=== PATIENT | female | born 1950 | race Caucasian/White ===

== ENCOUNTER 2017-02-16 08:03 | Emergency (ER) | payer BC ==
[2017-02-16] MEDS ORDERED: NORMAL SALINE 1,000 ML in NORMAL SALINE 1,000 ML IV ONE (08:29)
[2017-02-16] MEDS ORDERED: ACETAMINOPHEN 500 MG TABLET PO ONE (08:31)
[2017-02-16 08:53] LABS: Urine Bilirubin Negative (NEGATIVE); Urine Blood Negative /ul (NEGATIVE); Urine Ketone Negative (NEGATIVE); Urine Nitrite Negative (NEGATIVE); Urine Protein Negative (NEGATIVE); Urine Urobilinogen Normal (NORMAL); Urine pH 6.5 pH (5.0-7.0)
[2017-02-16 08:54] LABS: Hematocrit 36.2 % (37.0-47.0); Hemoglobin 11.4 gm/dL (12.5-16.0); Mean Cell Volume 87.7 fl (78-100); Mean Corpuscular Hemoglobin 27.6 pg (27-31); Mean Corpuscular Hgb Conc 31.5 g/dl (32-36); Platelet Count 212 K/mm3 (150-450); Red Blood Count 4.13 M/mm3 (4.2-5.4); Red Cell Distribution Width 15.9 % (11.5-14.0); White Blood Count 7.4 K/mm3 (4.0-10.5)
[2017-02-16 08:57] LABS: Total Cells Counted 100
[2017-02-16 09:02] LABS: Urine Appearance Clear; Urine Bacteria 1+; Urine Color Yellow; Urine Mucus TRACE; Urine RBC TRACE /hpf (0-5); Urine WBC TRACE /hpf (0-5)
--- OUTSIDE RECORDS SUMMARY | 2017-02-16 09:03 | XMS REPORT | Continuity of Care Document ---
:1950 Author Organization [facility] ([facility]) Address [address] [place] [address] Phone [phone] Care Team Providers Name Role Phone Rebekah Sibley Primary Care Provider [phone] Source Comments This disclosure is being made pursuant to the Care Everywhere program, applicable federal and state laws, and may not contain all informaitonavailable regarding this patient.[facility] ([facility]) Active Allergies and Adverse Reactions Allergen Noted Date Severity Reactions Comments Morphine 01/01/2015 Urticaria (Hives) Penicillins 07/21/2011 Rash Sitagliptin-Metformin 04/07/2012 Urticaria (Hives) Janumet Sulfasalazine 07/21/2011 Nausea & Vomiting,Rash Azulfidine. Pt reports not allergic to sulfa. Tramadol 02/12/2017 Pruritus Current Medications Prescription Sig. Disp. Refills Start End Status Date Date metFORMIN 500 mg Take 1,000 mg by Active tablet mouth 2 times daily with meals. calcium carbonate Take 1 Tab by Active (CALCIUM 600 + D) mouth daily. (600 mg Ca) 1500 mg -vitamin D3 400 unit per tablet multivitamin tablet Take 1 tablet by Active mouth daily. COPAXONE 20 mg/mL Inject 20 mg Active injection syringe subcutaneously 6 daily. cranberry 400 mg Take 400 mg by Active capsule mouth 2 times daily. levothyroxine 50 Take 50 mcg by Active mcg tablet mouth every morning before breakfast. mesalamine Take 6 capsules 200 capsule 11 Active (DELZICOL) 400 mg (2,400 mg total) 7 XR capsule by mouth 2 times daily. Take 6 capsules in morning and 6 capsules in evening 1 hour before or 2 hours after a meal. dexlansoprazole Take 60 mg by Active (DEXILANT) [address] mouth daily. capsule cholecalciferol Take 1 tablet 30 tablet 6 Active (VITAMIN D3) 5,000 (5,000 Units 7 unit tablet total) by mouth daily. predniSONE 20 mg 40 mg/day for 2 100 tablet 2 Active tablet weeks, then 35 7 mg/day for 1 week, then 30 mg/day for 1 week, continue to taper 5 mg/day every week. aspirin 81 mg EC Take 81 mg by Active tablet mouth daily. potassium chloride Take 20 mEq by Active 20 mEq XR tablet mouth 2 times daily. Per [facility], [place], [place] ferrous sulfate 325 Take 325 mg by Active mg (65 mg iron) mouth daily. tablet Patient advised to separate from calcium and levothyroxine. isoniazid 300 mg Take 1 tablet (300 30 tablet 8 Active tablet mg total) by mouth 7 daily. pyridoxine (vitamin Take 1 tablet (50 90 tablet 2 Active B6) (VITAMIN B-6) mg total) by mouth 7 50 mg tablet daily. DULoxetine 60 mg XR Take 60 mg by Active capsule mouth daily. gabapentin 800 mg Take 800 mg by Active tablet mouth 3 times daily. oxyCODONE-acetamino Take 1 tablet by Active phen 5-325 mg per mouth every 4 tablet hours as needed for Pain. Do NOT exceed 4000 mg of acetaminophen per 24 hours. DULoxetine Take 90 mg by Discontinued (CYMBALTA) 30 mg mouth daily. 017 capsule gabapentin 300 mg Take 300 mg by Discontinued capsule mouth 2 times 017 daily. azaTHIOprine Take 3.5 tablets 5 Discontinued (IMURAN) 50 mg by mouth daily. 7 017 tablet Active Problems Problem Noted Date Ulcerative colitis 02/04/2017 Biliary colic 10/24/2016 Rectal pain 10/21/2016 Loss of weight 10/20/2016 Generalized abdominal pain 10/20/2016 Pseudophakia, left eye 02/16/2015 Cataract, right eye 02/16/2015 Aphakia, left eye 01/08/2015 Retained lens material following cataract surgery of left eye 01/08/2015 Anemia due to unknown mechanism 01/08/2015 Vitreous hemorrhage, left eye 01/01/2015 Essential (primary) hypertension 11/09/2014 Hypercholesterolemia without hypertriglyceridemia 11/09/2014 Female stress incontinence 01/12/2014 Neurogenic bladder 02/06/2012 Recurrent UTI 02/06/2012 Diabetes mellitus 02/06/2012 Hypothyroidism 02/06/2012 Ulcerative colitis 07/21/2011 Multiple sclerosis 07/21/2011 Resolved Problems Problem Noted Date Resolved Date Elevated LFTs 10/20/2016 02/03/2017 Headache(784.0) 07/21/2011 02/03/2017 Chest pain syndrome 02/03/2017 Overview: Cath: 11/15/2014. Normal LV function. Right dominant circulation. LMCA normal. LAD normal. LCX normal. RCA normal. ([facility]) Most Recent Encounters Date Type Specialty Providers Description 02/12/2017 Office Visit IRL Dinesh Wright, Dx: Ulcerative Center rectosigmoiditis without complication (Primary Dx) 02/12/2017 Orders Only Med GI/Hepatology Haven Colunga, ANESTHESIOLOGIST ASSISTANT CERTIFIED 02/11/2017 Orders Only Med GI/Hepatology Haven Colunga, ANESTHESIOLOGIST ASSISTANT CERTIFIED 02/11/2017 Telephone Med GI/Hepatology Zainab Fuentes, Chief Comp: Medication RN Question 02/09/2017 Telephone Pharmacy Danielle Parra, Chief Comp: Medication RPH Question 02/04/2017 Orders Only Med GI/Hepatology Lesly Little MD 02/04/2017 Orders/Notes Med GI/Hepatology Lesly Little, Dx: Ulcerative colitis (Primary Dx) 02/03/2017 [facility] Radiology Salazar Rivas, Chief Comp: Patient Encounter MD Reported Reason For Visit 02/03/2017 Office Visit Pathology Default, Other Chief Comp: Patient Billg - Defo Reported Reason For Duong Thomson Visit MD [facility], p 02/03/2017 Office Visit Med Infectious Default, Other Dx: bed bug exterminator ( current) Disease Billg - Defo use of antibiotics Duong Thomson (Primary Dx) MD Kishore Gonzalez Benjamin S, MD 01/26/2017 Telephone Pharmacy Danielle Parra, Chief Comp: Medication RPH Question 01/21/2017 Telephone Med GI/Hepatology Lynette Rivera, Chief Comp: Return Call RN 01/19/2017 Telephone Med GI/Hepatology Johanny Esparza Dx: Not immune to hepatitis B virus (Primary Dx) 01/16/2017 Office Visit Med GI/Hepatology Default, Other Subj: Appointment Billg - Defo Scheduled Lesly Little MD 01/15/2017 Telephone Med GI/Hepatology Duglas Burris MD 01/15/2017 Telephone Med GI/Hepatology Duglas Burris MD 01/15/2017 Telephone [facility] GI/Hepatology Melony aPrra RN Chief Comp: Symptom Management 01/12/2017 Orders/Notes Med GI/Hepatology Lesly Little, Dx: Positive QuantiFERON-TB Gold test (Primary Dx) 01/12/2017 Telephone Med GI/Hepatology Melony Parra RN Chief Comp: Patient Concern 01/07/2017 Office Visit Pathology Default, Other Dx: Ulcerative Billg - Defo rectosigmoiditis with Dinesh Akhtar, complication MD [facility], Pfp 01/07/2017 Office Visit Med GI/Hepatology Dinesh Akhtar, Subj: Appointment Scheduled 01/05/2017 Telephone Med GI/Hepatology Lynette Rivera Chief Comp: Medication RN Reaction 01/02/2017 Telephone Med GI/Hepatology Melony Parra RN Chief Comp: Medication Question 12/29/2016 Telephone [facility] GI/Hepatology Melony Parra RN Dx: Ulcerative rectosigmoiditis with complication (Primary Dx) 12/23/2016 Office Visit Urology Mehreen, Chief Comp: Patient Kimmie Carrera MD Reported Reason For Visit 12/12/2016 Office Visit Med GI/Hepatology Arvin, Subj: Appointment MD Praveena Canceled Immunizations Name Dates Previously Given Next Due Influenza, quadrivalent PF 06/30/2014 Pneumococcal Conjugate, PCV13 (Prevnar 13) 07/21/2014 Tdap 02/24/2016 Social History Tobacco Use Types Packs/Day Years Used Date Former Smoker Cigarettes 1.5 34 Quit: 03/04/2009 Smokeless Tobacco: Never Used Tobacco Cessation:Counseling Given: Yes Comments:Quit 3 years ago Alcohol Use Drinks/Week oz/Week Comments No Used to drink two beers daily. Does not drink now. Last Filed Vital Signs Vital Sign Reading Time Taken Blood Pressure 132/68 02/12/2017 1:54 PM CDT Pulse 78 02/12/2017 1:54 PM CDT Temperature 36.6 C (97.9 F) 02/12/2017 12:45 PM CDT Respiratory Rate 16 02/12/2017 12:45 PM CDT Height 1.626 m (5' 4.02") 02/12/2017 12:45 PM CDT Weight 88.3 kg (194 lb 10.7 oz) 02/12/2017 12:45 PM CDT Body Mass Index 33.4 02/12/2017 12:45 PM CDT Oxygen Saturation 94% 10/25/2016 7:46 AM [facility] Plan of Care Date Type Specialty Providers Description 02/17/2017 Appointment Urology Kimmie Verde, Dx: Incomplete bladder MD emptying (Primary Dx) [address] [place] [address] [phone] (Fax) 02/24/2017 Wait List Med GI/Hepatology 02/24/2017 Appointment Med GI/Hepatology Dinesh Akhtar MD Subj: Appointment [address] [facility] [place] [address] [phone] (Fax) 02/26/2017 Appointment [facility] Dinesh Akhtar MD Subj: Appointment [address] [facility] [place] [address] [phone] (Fax) 02/27/2017 Wait List Med GI/Hepatology 02/27/2017 Appointment Med GI/Hepatology Default, Other Billg - Defo [address] [place] [address] [phone] (Fax) Subj: Appointment Lesly Little MD Rescheduled 03/26/2017 Appointment [facility] Dinesh Akhtar MD Subj: Appointment [address] [facility] [place] [address] [phone] (Fax) Health Maintenance Due Date Last Done Comments Hepatitis B Vaccine (1 of 3 - Primary 1950 Series) DIABETIC: Microalbumin 11/26/1969 Cervical Cancer Screening 11/26/1981 Mammogram 1991 Colonoscopy 11/26/2001 Zoster Vaccine 2011 DIABETIC: Foot Exam 04/05/2012 DIABETIC: Retinal Eye Exam 04/05/2012 Osteoporosis Screening (DXA Bone Density) 11/26/2016 Pneumococcal Vaccine (2 of 2 - PPSV23) 11/26/2016 07/21/2014 DIABETIC: Hemoglobin A1C 04/20/2017 10/21/2016, 01/08/2015 Influenza Vaccine: Seasonal (Season Ended) 2017 06/30/2014 DIABETIC: Cholesterol 10/22/2017 10/22/2016 Diabetic: Hdl 10/22/2017 10/22/2016 Diabetic: Ldl 10/22/2017 10/22/2016 DIABETIC: Triglycerides 10/22/2017 10/22/2016 Td Vaccine 02/23/2026 02/24/2016 Tdap Vaccine Completed 02/24/2016 HCV Screening Completed 10/20/2016, 07/21/2011 Results from Last 3 Months CHEST- PA& LATERAL (02/03/2017 10:24 AM) Impressions Findings and impression: Grossly stable exam with calcified granuloma in the left lower lobe and no new focal lung opacities or pleural disease. Heart and lung vascular D normal. Trachea central. Narrative Procedure: CHEST- PA & LATERAL Clinical Indication: Posterior testing. Technique: PA and lateral chest radiograph Comparison: 08/04/2013 Procedure Note Rafael, Incoming Imaging Results - Tue February 03, 2017 10:55 AM CDT Procedure: CHEST- PA & LATERAL Clinical Indication: Posterior testing. Technique: PA and lateral chest radiograph Comparison: 08/04/2013 IMPRESSION Findings and impression: Grossly stable exam with calcified granuloma in the left lower lobe and no new focal lung opacities or pleural disease. Heart and lung vascular D normal. Trachea central. HEPATITIS B SURFACE ANTIBODY (02/03/2017 10:09 AM) Component Value Range Hep B Surface Ab, Quantitative 6.6 mIU/mL Hep B Surface Ab, Qualitative Non Reactive(A) Reactive Hep B Surface Ab, Immune Status Non-immune(A)Comment: Immune Hepatitis B surface antibody can be formed following hepatitis B infection or after hepatitis B vaccination. A reactive result is consistent with immune status to hepatitis B. Non-reactive results fla g as abnormal in Epic which indicates non-immune status to hepatitis B. A non -reactive result does NOT imply hepatitis B infection. If ordered in workup of possible hepatitis B infection, hepatitis B surface antibody results should be interpreted in conjunction with other laboratory tests (e.g., hepatitis B surface antigen), clinical history, and physical examination. Reference range: Reactive (immune): 11.5 mIU/mL or greater Indeterminate (indeterminate immune status): 8.5 to 11.4 mIU/mL Non-reactive (non-immune): Less than 8.5 mIU/mL Specimen Blood HEPATIC FUNCTION PANEL (02/03/2017 10:09 AM) Component Value Range Albumin 4.4 3.4-4.8 g/dL ALP 76 35-104 U/L Bilirubin Total 0.5 <=1.2 mg/dL Bilirubin, Direct <0.2 0.0-0.2 mg/dL AST 21Comment: 0-32 U/L Adult reference ranges updated on 08/23/13 at 830am ALT 21Comment: 0-33 U/L The upper limit of normal for alanine aminotransferase (ALT) reference ranges for adults is controversial with some authorities recommending limit as low as 30 U/L for males and 19 U/L for females. Th ere is increased incidence of subclinical liver disease (e.g., early steatohepatitis) in patients with ALT values in the range of 31-41 U/L for males and 20-33 U/L for females. ALT values should alway s be interpreted in conjunction with clinical history, physical examination findings, and, if applicable, data from other diagnostic tests. Total Protein 7.3 6.0-8.0 g/dL Specimen Blood QUANTIFERON TB GOLD (01/07/2017 2:23 PM) Component Value Range QuantiFERON-TB Gold Positive(A)Comment: Negative Interferon-gamma response to M. tuberculosis antigens detected, suggesting infection with M. tuberculosis. TB Ag minus Nil results between 0.35 and 1.11 IU/mL in patients at low-risk for tuberculosis should be interpreted with caution and repeat testing on a new sample should be considered. False positive results may occur in patients with prior infection with M. marinum, M. szulgai or M. kansasii. For detailed information regarding test interpretation see: [email or web address] TB Ag minus Nil Result 2.25 IU/mL Mitogen minus Nil Result 9.81 IU/mL Nil Result 0.02 IU/mL Specimen Blood Narrative Test Performed by: [address] [address]
[2017-02-16 09:06] LABS: Albumin * 3.3 gm/dl (3.4-5.0); BUN/Creatinine Ratio 7.1 (9.0-21.6); Bilirubin, Total 0.6 mg/dL (0.0-1.1); CRP 7.5 mg/dL (0.0-0.9); Ca. Corrected For Albumin 8.7 mg/dL (8.4-10.2); Calcium * 8.5 mg/dL (7.9-10.9); Carbon Dioxide 29.9 mmol/L (24-32.6); Magnesium 1.7 mg/dL (1.2-2.8); Potassium 3.9 mmol/L (3.4-4.6); Total Protein 6.7 gm/dL (6.2-8.2)
[2017-02-16 09:08] LABS: Atypical (Reactive) Lymph 3 % (0-2); Band 3 % (0-2.0); Eosinophil 4 % (0-3); Lymphocyte 6 % (20-51); Monocyte 3 % (0-9); Neutrophil 81 % (42-75); Platelet Estimate Normal (NORMAL); RBC Morphology Normal (NORMAL)
[2017-02-16] MEDS ORDERED: NORMAL SALINE 1,000 ML IV ONE (10:23)
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
[2017-02-16 12:11] VITALS: BP 118/54
== END 2017-02-16 12:10 | disposition home or self-care (01) ==
LOC: ER 08:03
DX: R53.1 Weakness (principal); K51.90 Ulcerative colitis, unspecified, without complications; E11.9 Type 2 diabetes mellitus without complications; F32.89 Other specified depressive episodes; M79.7 Fibromyalgia; K21.9 Gastro-esophageal reflux disease without esophagitis; E03.9 Hypothyroidism, unspecified; M19.90 Unspecified osteoarthritis, unspecified site

== ENCOUNTER 2017-03-03 11:02 | Emergency (ER) | payer BC ==
--- OUTSIDE RECORDS SUMMARY | 2017-03-03 11:32 | XMS REPORT | Continuity of Care Document ---
:1950 Author Organization [facility] ([facility]) Address [address] [place] [address] Phone [phone] Care Team Providers Name Role Phone Rebekah Sibley Primary Care Provider [phone] Source Comments This disclosure is being made pursuant to the Care Everywhere program, applicable federal and state laws, and may not contain all informaitonavailable regarding this patient.[facility] ([facility]) Active Allergies and Adverse Reactions Allergen Noted [...] 7 unit tablet total) by mouth daily. aspirin 81 mg EC Take 81 mg by Active tablet mouth daily. potassium chloride Take 20 mEq by Active 20 mEq XR tablet mouth 2 times daily. Per [facility], [place], [place] ferrous sulfate 325 Take 325 mg [...] by mouth 7 50 mg tablet daily. gabapentin 800 mg Take 800 mg by Active tablet mouth 3 times daily. oxyCODONE-acetamino Take 1 tablet by Active phen 5-325 mg per mouth every 4 tablet hours as needed for Pain. Do NOT exceed 4000 mg of acetaminophen per 24 hours. ALPRAZolam 0.25 mg Take 0.25 mg by 3 Active tablet mouth daily as 7 needed. DULoxetine 30 mg XR Take 30 mg by Active capsule mouth daily. Patient takes in combination with 60 mg/day to equal 90 mg/day DULoxetine 60 mg XR Take 60 mg by Active capsule mouth daily. Patient takes in combination with 30 mg/day to equal 90 mg/day DULoxetine Take 90 mg by Discontinued (CYMBALTA) 30 mg mouth daily. 017 capsule predniSONE 20 mg 40 mg/day for 2 100 tablet 2 Discontinued tablet weeks, then 35 7 017 mg/day for 1 week, then 30 mg/day for 1 week, continue to taper 5 mg/day every week. gabapentin 300 mg Take 300 mg by Discontinued capsule mouth 2 times 017 daily. azaTHIOprine Take 3.5 tablets 5 Discontinued (IMURAN) 50 mg by mouth daily. 7 017 tablet DULoxetine 60 mg XR Take 90 mg by Discontinued capsule mouth daily. 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 Dilated CBD and PD seen on MRCP in . EUS prominent CBD without stones or lesion but sludge was seen. 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 Sphincterotomy performed. Cholangiogram did not reveal IH or EH bile duct lesions. Iron deficiency anemia due to chronic blood loss 02/24/2017 Vitamin D insufficiency 02/24/2017 Overview: Treatment started Neurogenic bladder 02/06/2012 Recurrent UTI 02/06/2012 Ulcerative colitis 07/21/2011 Overview: Formatting of this note may be different from the original. Ulcerative Colitis Assessment and Quality Measures: 1. Disease phenotype: UC diagnosed at age 15 in 1966. Disease extent: proctitis. Surgical history: none 2. Genetics/Markers: Fhx of IBD: none. Fhx of CRC: none. Serology/Genotype hx: not checked. 3. Medication history: Sulfasalazine (did not tolerate well) in 1966. Steroid was used to flares in . She did well until 2009. Asacol was started for 2 years. Then Mesalamine since 2011 (4.8 g a day). Admitted for UC symptoms confounded by biliary obstruction. Discharged on Prednisone 40 mg with taper 10/2016 without response, C diff negative. Diagnosed with latent TB started INH 02-03-2017. Entyvio started 2016. Laboratory monitoring arranged if on immune modulator: Not Applicable No results found for: [id number], [id number] No results found for: IFXA, IFXNAT, ADALACT, ADALNAB 4. Extra Intestinal Manefestations: joints 5. Last colonoscopy: 09/2016 with proctosigmoiditis 6. Last small bowel imaging: none 7. Last EGD: 09/2016 no evidence of small bowel or gastric disease. 8. Thiopurine and Biologic pre-treatment testing: TPMT enzyme activity tested: Not Applicable Lab Results Component Value Date/Time THIOPURINE METHYLTRANSFERASE 33.3 11/06/2016 12:01 PM QUANTIFERON-TB GOLD Positive* 01/07/2017 02:23 PM HEP B SURFACE ANTIGEN Negative 10/20/2016 03:56 PM HEP B SURFACE AB, QUANTITATIVE 6.6 02/03/2017 10:09 AM HEP B SURFACE AB, QUALITATIVE Non Reactive* 02/03/2017 10:09 AM HEP B CORE ABS TOTAL (IGG & IGM) Negative 10/20/2016 03:56 PM HEPATITIS C VIRUS ANTIBODY Negative 10/20/2016 03:56 PM 9. Celiac disease serology: Lab Results Component Value Date/Time IGA 132 10/21/2016 06:05 PM TTG IGA, QUANTITATIVE <0.5 10/20/2016 03:56 PM 10. Nutrition: Lab Results Component Value Date/Time VITAMIN B12 619 11/06/2016 12:01 PM VITAMIN D, 25-OH 23 11/06/2016 12:01 PM ALBUMIN 4.4 02/03/2017 10:09 AM HEMOGLOBIN 10.3* 10/25/2016 03:44 AM IRON, BLOOD 36* 11/06/2016 12:01 PM TRANSFERRIN 318 11/06/2016 12:01 PM IRON % SATURATION 8* 11/06/2016 12:01 PM FERRITIN 65.9 11/06/2016 12:01 PM 11. Tobacco usage: Cessation discussion this visit: No History Smoking status Former Smoker -- 1.50 packs/day for 34 years Types: Cigarettes Quit date: 03/04/2009 Smokeless tobacco Never Used Comment: Quit 3 years ago 12. IBD Related Health maintenance: Surveillance colonoscopy: last unknown, she only has proctitis, no surveillance needed. Risk factor score: 0 (low risk 0-2 & high risk 3-4) (one point for each: pancolitis, endoscopic and/or histological inflammation, pseudopolyps, and family history of CRC) Last bone density test: due. Last pap: unknown. Skin exams annually: recommended Immunizations: Counseled on the use of live vaccines: Yes Chickenpox/Varicella infection or immunization: Yes: Influenza vaccination or recommendation: UTD Pneumococcal vaccination or recommendation: Due for pneumovax No results found for: VZSCQNT Immunization History Administered Date(s) Administered Influenza, quadrivalent PF 06/30/2014 Pneumococcal Conjugate, PCV13 (Prevnar 13) 07/21/2014 Tdap 02/24/2016 13. Other: History of C diff: none. History of DVT: none. Personal or fhx of lymphoma: none. Multiple sclerosis 07/21/2011 Resolved Problems Problem Noted Date Resolved Date Elevated LFTs 10/20/2016 02/03/2017 Headache(784.0) 07/21/2011 02/03/2017 Chest pain syndrome 02/03/2017 Overview: Cath: 11/15/2014. Normal LV function. Right dominant circulation. LMCA normal. LAD normal. LCX normal. RCA normal. ([facility]) Most Recent Encounters Date Type Specialty Providers Description 03/02/2017 Telephone Med GI/Hepatology Melony Parra RN Chief Comp: Patient Concern 02/27/2017 Office Visit Med GI/Hepatology Default, Other Subj: Appointment Billg - Defo Canceled Lesly Little MD 02/27/2017 Telephone Med GI/Hepatology Lynette Rivera, Chief Comp: Return Call RN 02/26/2017 Office Visit IRL Infusion Dinesh Akhtar, Dx: Ulcerative colitis Center with complication, unspecified location (Primary Dx) 02/26/2017 Office Visit Med GI/Hepatology Jatinder Altman Dx: History of RMD ulcerative Dinesh Zepeda MD 02/24/2017 Office Visit Med GI/Hepatology Dinesh Akhtar, Dx: History of ulcerative sanna (Primary Dx) 02/24/2017 Telephone Med Infectious Franck Novak Chief Comp: Fever Disease MD Mallorie 02/20/2017 Telephone Med Infectious Franck Novak Dx: TB lung, latent Disease MD Mallorie (Primary Dx) 02/18/2017 Telephone Med GI/Hepatology Camille Beaver, Chief Comp: Patient RN Concern 02/17/2017 Office Visit Urology Mehreen, Dx: Incomplete bladder Kimmie Carrera MD emptying (Primary Dx) 02/12/2017 Office Visit [facility] Infusion Dinesh Akhtar, Dx: Ulcerative Center rectosigmoiditis without complication (Primary Dx) 02/12/2017 Orders Only Med GI/Hepatology Haven Colunga ARNP 02/11/2017 Orders Only Med GI/Hepatology Haven Colunga ARNP 02/11/2017 Telephone Med GI/Hepatology Zainab Fuentes, Chief Comp: Medication RN Question 02/09/2017 Telephone Pharmacy Danielle Parra, Chief Comp: Medication RPH Question 02/04/2017 Orders Only Med GI/Hepatology Lesly Little MD 02/04/2017 Orders/Notes Med GI/Hepatology Lesly Little, Dx: Ulcerative colitis (Primary Dx) 02/03/2017 Hospital Radiology Salazar Rivas, Chief Comp: Patient Encounter MD Reported Reason For Visit 02/03/2017 Office Visit Pathology Default, Other Chief Comp: Patient Billg - Defo Reported Reason For Duong Thomson MD Lab Services, Pfp 02/03/2017 Office Visit Med Infectious Default, Other Dx: negative cleaner ( current) Disease Billg - Defo use [...] Duglas Burris MD 01/15/2017 Telephone Med GI/Hepatology Melony Parra RN Chief Comp: Symptom Management 01/12/2017 Orders/Notes Med GI/Hepatology Lesly Little, Dx: Positive QuantiFERON-TB Gold test (Primary Dx) 01/12/2017 Telephone Med GI/Hepatology Melony Parra RN Chief Comp: Patient Concern 01/07/2017 Office Visit Pathology Default, Other Dx: Ulcerative Billg - Defo rectosigmoiditis with Dinesh Akhtar, complication Lab Services, Pfp 01/07/2017 Office Visit Med GI/Hepatology Dinesh Akhtar, Subj: Appointment MD Scheduled 01/05/2017 Telephone Med GI/Hepatology Lynette Rivera, Chief Comp: Medication RN Reaction 01/02/2017 Telephone Med GI/Hepatology Melony Parra RN Chief Comp: Medication Question 12/29/2016 Telephone Med GI/Hepatology Melony Parra RN Dx: Ulcerative rectosigmoiditis [...] Vital Sign Reading Time Taken Blood Pressure 137/67 02/24/2017 10:56 AM CDT Pulse 79 02/24/2017 10:56 AM CDT Temperature 37 C (98.6 F) 02/24/2017 10:56 AM CDT Respiratory Rate 16 02/12/2017 12:45 PM CDT Height 1.626 m (5' 4.02") 02/24/2017 10:56 AM CDT Weight 85.9 kg (189 lb 6 oz) 02/24/2017 10:56 AM CDT Body Mass Index 32.49 02/24/2017 10:56 AM CDT Oxygen Saturation 94% 10/25/2016 7:46 AM SENIOR PRODUCT DEVELOPMENT MANAGER Plan of Care Date Type Specialty Providers Description 03/24/2017 Appointment Jatinder Phillip, Subj: Appointment Scheduled [address] [place] [address] [phone] (Fax) 03/26/2017 Appointment [facility] Infusion Center Dinesh Akhtar MD Subj: Appointment [address] [place] [address] [phone] (Fax) Health Maintenance Due Date Last Done [...] 10/20/2016, 07/21/2011 Results from Last 3 Months ENTERIC PANEL (02/26/2017 12:57 PM) Component Value Range Campylobacter spp. Not Detected Not Detected Plesiomonas shigelloides Not Detected Not Detected Salmonella spp. Not Detected Not Detected Vibrio (parahaemolyticus, vulnificus and cholerae) Not Detected Not Detected Vibrio cholerae Not Detected Not Detected Yersinia enterocolitica Not Detected Not Detected Enteroaggregative E. coli (EAEC) Not Detected Not Detected Enteropathogenic E. coli (EPEC) Not Detected Not Detected Enterotoxigenic E. coli (ETEC) Not Detected Not Detected Shiga-like toxin-producing E. coli (STEC) Not Detected Not Detected E. coli O157 Not Detected Not Detected Shigella/Enteroinvasive E. coli (EIEC) Not Detected Not Detected Cryptosporidium Not Detected Not Detected Cyclospora cayetanensis Not Detected Not Detected Entamoeba histolytica Not Detected Not Detected Giardia lamblia Not Detected Not Detected Adenovirus F 40/41 Not Detected Not Detected Astrovirus Not Detected Not Detected Norovirus Not Detected Not Detected Rotavirus Not Detected Not Detected Sapovirus Not Detected Not Detected Specimen Culture - Fecal Swab, Stool Narrative Non-STEC E. coli such as enterotoxigenic E. coli (ETEC), enteroaggregative E. coli (EAEC) and enteropathogenic E. coli (EPEC) are common causes of travelers' diarrhea but may also be normal alonzo. Most Shigella do not produce Shiga toxins, while some E. coli (STEC) do. STEC , enteroinvasive E. coli (EIEC) and Shigella all produce similar clinical syndromes. Treatment of llisj-cipoo-pmteuiiinjbxeebbvm with antibiotics or antimotility agents may increase the risk of complications, including hemolytic uremic syndrome, neurologic complications, and toxic megacolon. Aeromonas testing is not routinely performed. Test method: PCR amplification; On [facility] Panel ([employer] CALPROTECTIN, FECAL (02/26/2017 12:55 PM) Component Value Range Calprotectin, Fecal 75(H)Comment: <=50 ug/g INTERPRETIVE INFORMATION: Calprotectin, Fecal 50 ug/g or less: Normal 51-120 ug/g: Borderline elevated, test should be re-evaluated in 4-6 weeks. 121 ug/g or greater: Abnormal Performed by [facility], [address] [place] [id number] [email or web address], Sunday Steiner MD, Lab. Director Specimen Stool Narrative Specimen Source: Specimen Start Date: C. DIFFICILE TOXIN SCREEN (02/26/2017 12:55 PM) Component Value Range C. Difficle GDH Negative Negative C. Difficile Toxin NegativeComment: Negative Negative for the presence of C. difficile and C. difficile toxin. Specimen Stool MICROSCOPIC URINALYSIS (02/26/2017 12:54 PM) Component Value Range White Blood Cells, Urine 3 0-5 /HPF Red Blood Cells, Urine <1 0-2 /HPF Calcium Oxalate Crystals, Urine 15(H) <5 /HPF Mucous-Urine Rare None, Rare Specimen Urine URINALYSIS WITH REFLEX CULTURE (02/26/2017 12:54 PM) Component Value Range Color, Urine Yellow Straw, Pale Yellow, Yellow, Clear, None Clarity, Urine Clear Clear pH, Urine 5.0 <9.0 Spec [place], Urine 1.015 1.000-1.030 Glucose, Urine Negative Negative Blood, Urine Negative Negative Ketones, Urine Negative Negative Protein, Urine Negative Negative Urobilinogen, Urine Normal Normal Bilirubin, Urine Negative Negative Leukocyte Esterase, Urine Negative Negative Nitrite, Urine Negative Negative Specimen Urine URINALYSIS WITH REFLEXED CULTURE AND MICROSCOPIC EXAM (02/26/2017 12:54 PM) Specimen Culture - Urine, Midstream clean catch Narrative The following orders were created for panel order URINALYSIS WITH REFLEXED CULTURE AND MICROSCOPIC EXAM. Procedure Abnormality Status --------- ------ URINALYSIS WITH REFLEX C...[[id number]]Normal Final result MICROSCOPIC URINALYSIS[[id number]] Abnormal Final result URINE CULTURE, REFLEXED[[id number]]Abnormal Final result Please view results for these tests on the individual orders. URINE CULTURE, REFLEXED (02/26/2017 12:54 PM) Component Value Range Quantitative Culture Multiple Organisms present suggesting improperly collected specimen(A) Specimen Culture - Urine, Midstream clean catch DIFFERENTIAL (02/24/2017 2:11 PM) Component Value Range % Manual Neutrophils 41.7 % Neutrophils-Manual 3181 8991-8983 /MM3 % Manual Lymphocytes 28.7 % Lymphocytes-Manual 2187 875-3300 /MM3 % Manual Monocytes 18.3 % Monocytes-Manual 1391(H) 130-860 /MM3 % Manual Eosinophils 0.9 % Eosinophils-Manual 66 40-390 /MM3 % Manual Bands 8.7 % Bands-Man Diff 663(H) 0-406 /MM3 % Manual Reactive Lymphocytes 1.7 % Reactive Lymphocytes-Manual 133 0-315 /MM3 ANC (Absolute Neutrophil Count) 3844 /MM3 Specimen Whole Blood CBC (COMPLETE BLOOD COUNT) (02/24/2017 2:11 PM) Component Value Range WBC Count 7.6 3.7-10.5 K/MM3 RBC Count 4.17 4.00-5.20 M/MM3 Hemoglobin 11.5(L) 11.9-15.5 g/dL Hematocrit 35 35-47 % MCV (Mean Corpuscular Volume) 84 82-99 FL MCH (Mean Corpuscular Hemoglobin) 28 25-35 PG MCHC (Mean Corpuscular Hemoglobin Concentration) 33 32-36 % Platelet Count 306 150-400 K/MM3 MPV (Mean Platelet Volume) 9.8 9.4-12.3 FL RBC Dist Width-STD 52.8(H) 36.4-46.3 FL RBC Distrib Width 17.3(H) 9.0-14.5 % Nucleated RBC 0 /100 WBC Specimen Whole Blood BLOOD CELL MORPHOLOGY (02/24/2017 2:11 PM) Specimen Whole Blood DOUBLE STRANDED DNA ANTIBODY (02/24/2017 2:11 PM) Component Value Range dsDNA Ab, Quantitative <1 0-4 IU/mL dsDNA Ab, Qualitative NegativeComment: Negative Double-stranded DNA (dsDNA) IgG antibodies are part of the [employer] criteria for the diagnosis of systemic lupus erythematosus (SLE) .dsDNA are detectable in approximately 8 5% of patients with untreated SLE and are rarely detected in other connective tissue diseases.Weakly positive and indeterminate results are not specific to SLE and can occur in other diseases. Lev els of dsDNA antibodies often fluctuate with disease activity in SLE and may decrease with response to therapy.Increases of 25% or more in dsDNA antibody level may indicate disease exacerbation. Specimen Blood HISTONE ANTIBODY, IGG (02/24/2017 2:11 PM) Component Value Range Histone IgG Ab 0.5Comment: 0.0-0.9 Units INTERPRETIVE INFORMATION: Histone Ab, IgG 0.9 Units or less ............ Negative 1.0 - 1.5 Units .............. Weak Positive 1.6 - 2.5 Units .............. Moderate Positive 2.6 Units or greater ......... Strong Positive Performed by [facility], [address] [place] [id number] [email or web address], Sunday Steiner MD, Lab. Director Specimen Blood Narrative Specimen Source: Specimen Start Date: ANTI-NUCLEAR ANTIBODY SCREEN (02/24/2017 2:11 PM) Component Value Range EVELYN Screen <1:80 <1:40, <1:80 Specimen Blood CYTOMEGALOVIRUS (CMV) QUANTITATIVE PCR BLOOD (02/24/2017 2:11 PM) Component Value Range CMV Blood Quantitative PCR Negative Negative Copies/mL Specimen Blood Narrative Test Methodology:PCR amplification The performance characteristics of this test were determined by the [facility].It has not been cleared or approved by the U.S. Food and DrugAdministration (FDA). The FDA has determined that such clearance or approval is not necessary.This test is for clinical purposes.It should not be regarded as investigational or for research. The laboratory is certified under the Clinical Laboratory Improvement Amendments of 1988 (CLIA) as qualified to perform high complexity clinical laboratory testing. SOLUBLE TRANSFERRIN RECEPTOR (02/24/2017 2:11 PM) Component Value Range Soluble Transferrin Receptor 5.0(H) 1.9-4.4 mg/L Specimen Blood IRON PANEL (IRON, TRANSFERRIN, TIBC AND % SATURATION) (02/24/2017 2:11 PM) Component Value Range Iron, Blood 79 37-145 g/dL Transferrin 242 200-360 mg/dL Iron % Saturation 23Comment: 15-50 % Iron % saturation is a calculated parameter derived from the iron and transferrin plasma concentrations. Iron % saturation is not reliable when there are high ferritin concentrations greater than 1,200 ng/mL. TIBC (Total Iron Binding Capacity) 346Comment: 250-425 g/dL TIBC is a calculated parameter derived from the transferrin plasma concentration. Specimen Blood HEPATIC FUNCTION PANEL (02/24/2017 2:11 PM)Only the most recent of2 resultswithin the time period is included. Component Value Range Albumin 3.5 3.4-4.8 g/dL ALP 222(H) 35-104 U/L Bilirubin Total 0.7 <=1.2 mg/dL Bilirubin, Direct 0.3(H) 0.0-0.2 mg/dL AST 53(H)Comment: 0-32 U/L Adult reference ranges updated on 08/23/13 at 830am ALT 39(H)Comment: 0-33 U/L The upper limit of normal [...] data from other diagnostic tests. Total Protein 6.7 6.0-8.0 g/dL Specimen Blood ERYTHROCYTE SEDIMENTATION RATE (02/24/2017 2:11 PM) Component Value Range ESR (Erythrocyte Sedimentation Rate) 39(H) 0-20 mm/Hr Specimen Whole Blood C-REACTIVE PROTEIN (02/24/2017 2:11 PM) Component Value Range CRP (C-Reactive Protein) 10.4(H) <=0.5 mg/dL Specimen Blood CBC WITH DIFFERENTIAL (02/24/2017 2:11 PM) Specimen Whole Blood Narrative The following orders were created for panel order CBC WITH DIFFERENTIAL. Procedure Abnormality Status --------- ------ CBC (COMPLETE BLOOD COUNT)[[id number]] AbnormalFinal result DIFFERENTIAL[[id number]] AbnormalFinal result Please view results for these tests on the individual orders. BASIC METABOLIC PANEL W/ CALCIUM (CHEM 8) (02/24/2017 2:11 PM) Component Value Range Sodium 133(L) 135-145 mEq/L Potassium 4.0 3.5-5.0 mEq/L Chloride 95 95-107 mEq/L CO2 23 22-29 mEq/L BUN 7(L) 10-20 mg/dL Creatinine 0.6Comment: 0.5-1.0 mg/dL Creatinine switched to enzymatic method on 02/04/2011.GFR equation switched to IDMS-traceable MDRD equation on 02/04/2011. Calculated GFR values are not valid in clinical settings where serum creatinine is changing. Glucose 131(H)Comment: 65-99 mg/dL The Expert Committee on the Diagnosis and Classification of Diabetes has defined impaired fasting glucose as greater than or equal to 100 mg/dL but less than 126 mg/dL.(Diabetes Care 28 (Suppl 1)S41,2005) Calcium 9.1 8.5-10.5 mg/dL Anion Gap 15 <17 mEq/L Calculated GFR >90 >60 mL/min/1.73 m2 Specimen Blood CHEST- PA& LATERAL (02/03/2017 10:24 AM) Impressions Findings and impression: Grossly stable exam with calcified granuloma in the left lower lobe and no new focal lung opacities or pleural disease. Heart and lung vascular D normal. Trachea central. Narrative Procedure: CHEST- PA & LATERAL Clinical Indication: Posterior testing. Technique: PA and lateral chest radiograph Comparison: 08/04/2013 Procedure Note Rafael, Incoming Imaging Results - ThuFebruary 03, 2017 10:55 AM CDT Procedure: CHEST- [...] (non-immune): Less than 8.5 mIU/mL Specimen Blood QUANTIFERON TB GOLD (01/07/2017 2:23 [...] For detailed information regarding test interpretation see: [email or web address] [email or web address] TB Ag minus Nil Result 2.25 IU/mL Mitogen minus Nil Result 9.81 IU/mL Nil Result 0.02 IU/mL Specimen Blood Narrative Test Performed by: [address] [address]
--- NOTE | 2017-03-03 11:37 | ERNOTE ---
Lower Extremity HPI - Narrative Date of Service: 03/03/17 - General Lower Extremities Pain: leg: bilateral Time Seen by Provider: 03/03/17 11:23 Source: patient Exam Limitations: no limitations - Immun/Allergies/Home Medications Immunizations: IMMUNIZATION HX Immunizations Up to Date Yes History of Influenza Vaccine No Hx Pneumococcal Vaccination No Allergies/Adverse Reactions: Allergies Allergy/AdvReac Type Severity Reaction Status Date / Time morphine Allergy Mild Hives Verified 03/03/17 11:20 sitagliptin phosphate Allergy Mild Hives Verified 03/03/17 11:20 [From Janumet] sulfasalazine Allergy Mild Nausea, Verified 03/03/17 11:20 [From Azulfidine] rash dimethyl fumarate Allergy Verified 03/03/17 11:20 [From Tecfidera] tramadol Allergy Verified 03/03/17 11:20 penicillin G AdvReac Mild RASH, FEVER Verified 03/03/17 11:20 Home Medications: HOME MEDICATIONS Calcium Carb & Citrate/Vit D3 [Calcium + Vitamin D3 Caplet] 1 each PO BID [Last Taken Unknown] DULoxetine HCL [Cymbalta] 60 mg PO DAILY 11/24/13 [Last Taken Unknown] Dexlansoprazole [Dexilant] 60 mg PO DAILY 11/24/13 [Last Taken Unknown] Levothyroxine Sodium [Synthroid] 50 mcg PO DAILY 11/24/13 [Last Taken Unknown] Mesalamine [Delzicol] 2,400 mg PO BID 11/24/13 [Last Taken Unknown] Blood Sugar Diagnostic, Drum [Accu-Chek Compact] 1 each MC DAILY 11/01/14 [Last Taken Unknown] metFORMIN HCL [Glucophage] 1,000 mg PO BIDWM 11/01/14 [Last Taken Unknown] Copaxone 20 mg SQ DAILY 05/14/16 [Last Taken Unknown] Gabapentin 800 mg PO TID 05/14/16 [Last Taken Unknown] Aspirin [Aspirin EC] 81 mg PO DAILY 02/16/17 [Last Taken Unknown] Cholecalciferol [Vitamin D] 5,000 unit PO DAILY 02/16/17 [Last Taken Unknown] Cranberry Fruit [Cranberry] 400 mg PO BID 02/16/17 [Last Taken Unknown] Ferrous Sulfate 325 mg PO DAILY 02/16/17 [Last Taken Unknown] Multivitamin [One Daily Multivitamin] 1 each PO DAILY 02/16/17 [Last Taken Unknown] oxyCODONE HCL/ACETAMINOPHEN [Percocet 5 MG/325 MG] 1 - 2 tab PO Q4H PRN [Last Taken Unknown] predniSONE [Prednisone] 40 mg PO DAILY 02/16/17 [Last Taken Unknown] Furosemide [Lasix] 40 mg PO DAILY #30 tablet 03/03/17 [Last Taken Unknown] Potassium Chloride [Klor-Con M20] 40 meq PO BID #30 tab.er.prt 03/03/17 [Last Taken Unknown] - History of Present Illness Narrative: Pt. comes in with c/o swelling in her BLE left greater than R for over a week. Pt. denies any pain, SOB, CP, NVD, fever, recent illness, but does state that having her feet down increases the swelling and elevating legs decreases swelling. Pt. denies any prehospital treatment but was sent here by her PCP as she was not here. Review of Systems - Review of Systems Constitutional: Present: no symptoms reported. Absent: weakness, fatigue, malaise EYE: Present: no symptoms reported ENT: Present: no symptoms reported Respiratory: Present: no symptoms reported. Absent: shortness of breath, cough , wheezing Cardiology: Present: edema - BLE L >R. Absent: chest pain, palpitations Gastrointestinal/Abdominal: Present: no symptoms reported. Absent: nausea, vomiting, diarrhea Genitourinary: Present: no symptoms reported. Absent: frequency, decreased urinary output Musculoskeletal: Present: no symptoms reported. Absent: back pain, joint pain - Patient's Past Medical History Patient History - Medical: Diabetes Type 2, Depression, Fibromyalgia, GERD, Hypothyroidism, Osteoarthritis Patient History - Cardiac/Respiratory: No pertinent hx Patient History - Cancer: No Hx of Cancer Patient History - Surgical Procedures: Angioplasty, Cataracts, Cholecystectomy, Colonoscopy, D & C, Other Patient History - Other: None LMP (females 10-50): Menopausal - Family History Mother Family History - Medical: , No pertinent hx, Cataracts Family History - Cardiac/Respiratory: Arrhythmias, Hyperlipidemia Father Family History - Medical: , Cataracts Family History - Cardiac/Respiratory: No pertinent hx - Social History Living Situations: home Abuse History: No History of abuse Psych History: Hx of Depression Have you smoked in the past 12 months: No Alcohol Use: none Drug Use: none - Immunizations Immunizations Up to Date: Yes Hx Pneumococcal Vaccination: No History of Influenza Vaccine: No Physical Exam - Physical Exam General Appearance: Present: wd/wn, alert, no apparent distress Eye Exam: Normal inspection: bilateral, PERRL: bilateral, EOMI: bilateral Ears, Nose, Throat: Present: normal ENT inspection, normal pharynx Neck: Present: normal inspection, nontender. Absent: lymphadenopathy (R), lymphadenopathy (L) Respiratory: Present: no respiratory distress, normal breath sounds, no accessory muscle use, chest nontender, lungs clear Cardiovascular/Chest: Present: regular rate, rhythm, no murmur, normal peripheral pulses Gastrointestinal/Abdominal: Present: normal bowel sounds, nontender Back Exam: Present: normal inspection Extremity Exam: Present: non-tender, normal range of motion, extremity edema - L +1 R trace. Absent: calf tenderness Neurological Exam: Present: alert, oriented, normal mood/affect, no motor/ sensory deficits. Absent: market specialist II-XII nml as tested, normal cerebellar test Skin Exam: Present: normal color, warm/dry. Absent: pallor, skin rash ED Progress - Date and Time Seen: Date and Time: 03/03/17 13:[address] West and she recommends that pt. start lasix and potassium and follow up with her. - Results and Orders Patient's Lab Results:: I have reviewed the patient's lab results. - Vital Signs Patient's Vital Signs:: I have reviewed the patient's vital signs. Vital Signs: Vital Signs 03/03/17 11:07 Temperature 36.4 C L Pulse Rate 74 Respiratory 14 Rate Blood Pressure 137/69 O2 Sat by Pulse 96 Oximetry - EKG EKG: NSR EKG read: Reviewed by me EKG Comments: Interp by Dr Stanton - X-Ray X-Ray #1 X-Ray: chest Interpretation: Reviewed by me X-ray Comments: no pulm edema, no consolidation, no cardiomegaly - Progress/Reassessment Chief Complaint: Lower Extremity Pain/ Injury Progress:: Unchanged Departure Clinical Impression: Water retention - Departure Disposition: Home self-care Condition: Good Instructions: Peripheral Edema Additional Instructions: Please follow up with Dr west this week for follow up and increase potassium to 40 meq twice a day and start lasix. Referrals: Rebekah West DO [Primary Care Provider] - Prescriptions: Furosemide [Lasix] 40 mg PO DAILY #30 tablet Potassium Chloride [Klor-Con M20] 40 meq PO BID #30 tab.er.prt
[2017-03-03 11:52] LABS: Hematocrit 32.6 % (37.0-47.0); Hemoglobin 10.6 gm/dL (12.5-16.0); Mean Cell Volume 84.2 fl (78-100); Mean Corpuscular Hemoglobin 27.4 pg (27-31); Mean Corpuscular Hgb Conc 32.5 g/dl (32-36); Neutrophil # 9.1 K/mm3 (1.3-6.0); Neutrophil % 61.5 % (42-75.0); Platelet Count 612 K/mm3 (150-450); Red Blood Count 3.87 M/mm3 (4.2-5.4); Red Cell Distribution Width 16.3 % (11.5-14.0); White Blood Count 14.8 K/mm3 (4.0-10.5)
[2017-03-03 12:11] LABS: Troponin I Less than 0.017 ng/ml (0.00-0.10)
[2017-03-03 12:14] LABS: ALT 54 U/L (19-67); AST 33 U/L (0-48); Albumin * 3.4 gm/dl (3.4-5.0); Alkaline Phosphatase * 208 U/L (50-170); Anion Gap 11.1 mmol/L (6.8-13.8); BNP * 339 pg/mL (5-325); BUN/Creatinine Ratio 15.9 (9.0-21.6); Bilirubin, Total 0.4 mg/dL (0.0-1.1); Blood Urea Nitrogen 11 mg/dL (3-23); Ca. Corrected For Albumin 10.1 mg/dL (8.4-10.2); Calcium * 9.9 mg/dL (7.9-10.9); Carbon Dioxide 31.9 mmol/L (24-32.6); Chloride 99 mmol/L (97-106); Glucose * 182 mg/dL (70-110); Sodium 138 mmol/L (132-142); TSH * 0.906 uIU/mL (0.358-3.74); Total Protein 7.2 gm/dL (6.2-8.2)
[2017-03-03 13:40] LABS: Urine Bilirubin 1 mg/dl (NEGATIVE); Urine Ketone 5 mg/dL (NEGATIVE); Urine Nitrite Negative (NEGATIVE); Urine Protein Negative (NEGATIVE); Urine Specific Gravity 1.025 SP.GR. (1.005-1.010); Urine Urobilinogen Normal (NORMAL)
[2017-03-03 13:47] LABS: Urine Appearance Clear; Urine Bacteria None Seen; Urine Blood 5 /ul (NEGATIVE); Urine Color Yellow; Urine RBC None Seen /hpf (0-5); Urine WBC None Seen /hpf (0-5)
[2017-03-03] MEDS ORDERED: FUROSEMIDE 40 MG TABLET PO ONE (14:03)
[2017-03-03] MEDS ORDERED: FUROSEMIDE 40 MG TABLET ONE (14:05)
[2017-03-03 14:09] VITALS: BP 145/77
== END 2017-03-03 14:18 | disposition home or self-care (01) ==
LOC: ER 11:02
DX: E87.70 Fluid overload, unspecified (principal); E03.9 Hypothyroidism, unspecified; F32.9 Major depressive disorder, single episode, unspecified

== ENCOUNTER 2017-08-02 12:36 | Emergency (ER) | payer BC ==
[2017-08-02] MEDS ORDERED: DEXTROSE 50%-WATER 50 ML SYRG IV ONE (12:38)
[2017-08-02] MEDS ORDERED: ASPIRIN 300 MG SUPP.RECT RC ONE ×2 (12:38→12:41)
[2017-08-02] MEDS ORDERED: ASPIRIN 81 MG TAB.CHEW ONE (12:38)
[2017-08-02] MEDS ORDERED: DEXTROSE 50%-WATER 50 ML SYRG ONE (12:40)
--- NOTE | 2017-08-02 12:52 | ERNOTE ---
Neuro HPI ER Record Presenting Symptoms: weakness, facial droop, difficulty walking, difficulty standing Time Seen by Provider: 08/02/17 12:44 Source: patient, family, EMS Exam Limitations: clinical condition Immunizations: IMMUNIZATION HX Immunizations Up to Date Yes History of Influenza Vaccine No Hx Pneumococcal Vaccination No Allergies/Adverse Reactions: Allergies Allergy/AdvReac Type Severity Reaction Status Date / Time morphine Allergy Mild Hives Verified 03/03/17 11:20 sitagliptin phosphate Allergy Mild Hives Verified 03/03/17 11:20 [From Janumet] sulfasalazine Allergy Mild Nausea, Verified 03/03/17 11:20 [From Azulfidine] rash dimethyl fumarate Allergy Verified 03/03/17 11:20 [From Tecfidera] tramadol Allergy Verified 03/03/17 11:20 penicillin G AdvReac Mild RASH, FEVER Verified 03/03/17 11:20 Home Medications: HOME MEDICATIONS Calcium Carb & Citrate/Vit D3 [Calcium + Vitamin D3 Caplet] 1 each PO BID [Last Taken Unknown] DULoxetine HCL [Cymbalta] 60 mg PO DAILY 11/24/13 [Last Taken Unknown] Dexlansoprazole [Dexilant] 60 mg PO DAILY 11/24/13 [Last Taken Unknown] Levothyroxine Sodium [Synthroid] 50 mcg PO DAILY 11/24/13 [Last Taken Unknown] Mesalamine [Delzicol] 2,400 mg PO BID 11/24/13 [Last Taken Unknown] Blood Sugar Diagnostic, Drum [Accu-Chek Compact] 1 each MC DAILY 11/01/14 [Last Taken Unknown] metFORMIN HCL [Glucophage] 1,000 mg PO BIDWM 11/01/14 [Last Taken Unknown] Copaxone 20 mg SQ DAILY 05/14/16 [Last Taken Unknown] Gabapentin 800 mg PO TID 05/14/16 [Last Taken Unknown] Aspirin [Aspirin EC] 81 mg PO DAILY 02/16/17 [Last Taken Unknown] Cholecalciferol [Vitamin D] 5,000 unit PO DAILY 02/16/17 [Last Taken Unknown] Cranberry Fruit [Cranberry] 400 mg PO BID 02/16/17 [Last Taken Unknown] Ferrous Sulfate 325 mg PO DAILY 02/16/17 [Last Taken Unknown] Multivitamin [One Daily Multivitamin] 1 each PO DAILY 02/16/17 [Last Taken Unknown] oxyCODONE HCL/ACETAMINOPHEN [Percocet 5 MG/325 MG] 1 - 2 tab PO Q4H PRN [Last Taken Unknown] predniSONE [Prednisone] 40 mg PO DAILY 02/16/17 [Last Taken Unknown] Furosemide [Lasix] 40 mg PO DAILY #30 tablet 03/03/17 [Last Taken Unknown] Potassium Chloride [Klor-Con M20] 40 meq PO BID #30 tab.er.prt 03/03/17 [Last Taken Unknown] - History of Present Illness Narrative: Patient is a 66-year-old female who presents to the emergency room via EMS paresis of the right upper and lower extremity and right-sided facial droop. We don't know the last time she was known to be well. A daughter who gave the history estimates between 4 and 6 AM this morning. Upon arrival her blood sugar was 23. Last Date Known Well: 08/02/17 Onset: cannot confirm onset - Character of Deficits New weakness: Present: RUE, RLE, facial (rt) Additional Deficits: Present: decrease ability to walk, falling Baseline Cognition: Present: alert, oriented x 4 Baseline Gait: Present: walks w/o assistance Review of Systems - Review of Systems Constitutional: Present: no symptoms reported EYE: Present: no symptoms reported ENT: Present: no symptoms reported Respiratory: Present: no symptoms reported Cardiology: Present: no symptoms reported Gastrointestinal/Abdominal: Present: no symptoms reported Genitourinary: Present: no symptoms reported Musculoskeletal: Present: muscle stiffness Neurological: Present: See HPI Endocrine: Present: no symptoms reported Hematologic/Lymphatic: Present: no symptoms reported Psych: Present: no symptoms reported - Patient's Past Medical History Patient History - Medical: Diabetes Type 2, Depression, Fibromyalgia, GERD, Hypothyroidism, Osteoarthritis Patient History - Cardiac/Respiratory: No pertinent hx Patient History - Cancer: No Hx of Cancer Patient History - Surgical Procedures: Angioplasty, Cataracts, Cholecystectomy, Colon Resection, Colonoscopy, D & C, Other Patient History - Other: None - Family History Mother Family History - Medical: , No pertinent hx, Cataracts Family History - Cardiac/Respiratory: Arrhythmias, Hyperlipidemia Father Family History - Medical: , Cataracts Family History - Cardiac/Respiratory: No pertinent hx - Social History Abuse History: No History of abuse Psych History: Hx of Depression - Immunizations Immunizations Up to Date: Yes Hx Pneumococcal Vaccination: No History of Influenza Vaccine: No Physical Exam - Physical Exam General Appearance: Present: alert, no apparent distress Head Exam: Present: normal inspection, no evidence of injury Eye Exam: PERRL: bilateral, EOMI: bilateral Ears, Nose, Throat: Present: normal ENT inspection Respiratory: Present: no respiratory distress, normal breath sounds, no accessory muscle use, chest nontender Cardiovascular/Chest: Present: regular rate, rhythm, no murmur, normal peripheral pulses Gastrointestinal/Abdominal: Present: normal bowel sounds, nontender Neurological Exam: Present: alert, facial droop - RIGHT, motor weakness Somers Coma Scale - Assess Eye Opening: Spontaneous Motor: Obeys Commands Verbal: Oriented - Total Coma Scale Total: 15 Stroke Inclusion/Exclusion Cri - Inclusion Questions: Onset of symptoms <3 1/2 hours of admission to ETC: No ED Progress - Results and Orders Patient's Lab Results:: I have reviewed the patient's lab results. - Vital Signs Patient's Vital Signs:: I have reviewed the patient's vital signs. Vital Signs: Vital Signs 08/02/17 12:37 Pulse Rate 93 Respiratory 14 Rate Blood Pressure 141/112 O2 Sat by Pulse 98 Oximetry - EKG EKG: NSR, ST depression - in lead 1 and aVL - Progress/Reassessment Chief Complaint: CerebroVascular Accident Progress:: Improved Progress Note-Subjective: 08/02/17 14:55 CT scan of the head reviewed with radiologist with a possible age indeterminate lacunar infarct in the is a LEFT BASAL ganglia region. Deny emergency room stay patient was started on IV fluids she was also given 50 glucose when initial blood sugar was in the 20s or so it was repeated. When blood sugar done was in the 160 range. The reassessment done in the emergency room was consistent with improvement and resultant of a right-sided weakness. Also facial droop resolved with symmetrical SMILES when prompted. I notified [facility] in [place] regarding transitioning patient over and spoke with Dr. Soni Pérez regarding the result of the CT scan of the head. In addition if this was caused by an hypoglycemic episode that the prognosis should be bilateral instead of a unilateral symptom. These were concerning to me He talked to the family who wanted her transitioned to her neurologist Dr. Cam Sneed at [facility] for further evaluation. They have a history of MS. A second assessment was consistent with result mental for facial droop . Also she appears to have normal strength and up on the extremity. We'll transition her to [facility] as noted above. - Transfer of Care Expected Disposition: Transfer - transfer to [facility] Departure Clinical Impression: Hypoglycemia, Right sided weakness TIA (transient ischemic attack) Qualifiers: Transient cerebral ischemia type: unspecified Qualified Code(s): G45.9 - Transient cerebral ischemic attack, unspecified - Departure [facility] [place] Condition: Stable
[2017-08-02] MEDS ORDERED: GLUCAGON,HUMAN RECOMBINANT 1 MG VIAL ONE (12:55)
[2017-08-02] MEDS ORDERED: GLUCAGON,HUMAN RECOMBINANT 1 MG VIAL IM ONE (12:57)
[2017-08-02 13:02] LABS: Hematocrit 42.8 % (37.0-47.0); Hemoglobin 14.2 gm/dL (12.5-16.0); Mean Cell Volume 80.8 fl (78-100); Mean Corpuscular Hemoglobin 26.8 pg (27-31); Mean Corpuscular Hgb Conc 33.2 g/dl (32-36); Mean Platelet Volume 10.1 fl (6.0-9.5); Neutrophil # 9.6 K/mm3 (1.3-6.0); Neutrophil % 78.5 % (42-75.0); Platelet Count 369 K/mm3 (150-450); Red Cell Distribution Width 14.8 % (11.5-14.0); White Blood Count 12.2 K/mm3 (4.0-10.5)
[2017-08-02 13:24] LABS: ALT 60 U/L (19-67); AST 82 U/L (0-48); Albumin * 4.1 gm/dl (3.4-5.0); Alkaline Phosphatase * 104 U/L (50-170); Anion Gap 16.2 mmol/L (6.8-13.8); BUN/Creatinine Ratio 18.5 (9.0-21.6); Bilirubin, Total 0.4 mg/dL (0.0-1.1); Blood Urea Nitrogen 20 mg/dL (3-23); CK Total * 275 U/L (0-259); CKMB 4.6 ng/mL (0.0-9.0); Calcium * 11.4 mg/dL (7.9-10.9); Carbon Dioxide 20.8 mmol/L (24-32.6); Chloride 102 mmol/L (97-106); Sodium 135 mmol/L (132-142); Total Protein 7.9 gm/dL (6.2-8.2); Troponin I Less than 0.017 ng/ml (0.00-0.10)
[2017-08-02 13:26] LABS: Glucose * 27 mg/dL (70-110)
[2017-08-02 13:54] LABS: Partial Thrombolplastin Time 17.2 Seconds (24-32)
[2017-08-02 14:02] LABS: Urine Appearance Clear; Urine Bilirubin Negative (NEGATIVE); Urine Blood Negative /ul (NEGATIVE); Urine Color Yellow; Urine Ketone Negative (NEGATIVE); Urine Protein Negative (NEGATIVE); Urine Urobilinogen Normal (NORMAL)
[2017-08-02 14:03] LABS: Urine WBC 0-5 /hpf (0-5)
[2017-08-02 14:06] LABS: Urine Bacteria 1+; Urine RBC 0-5 /hpf (0-5)
[2017-08-02 14:07] LABS: Urine Nitrite Positive (NEGATIVE)
[2017-08-02 15:58] VITALS: BP 138/57
== END 2017-08-02 15:32 | disposition short-term general hospital (02) ==
LOC: ER 12:36
PROC: 0T9B70Z Drainage of Bladder with Drainage Device, Via Natural or Artificial Opening (ICD-10-PCS; principal; 2017-08-02)
DX: G45.9 Transient cerebral ischemic attack, unspecified (principal); E16.2 Hypoglycemia, unspecified; R53.1 Weakness

== ENCOUNTER 2017-08-21 10:18 | Inpatient (IN) | payer BC ==
[2017-08-21] MEDS: ENOXAPARIN SODIUM 40 MG/0.4 ML SYRG SC SCH (11:54)
[2017-08-21 13:14] LABS: Hematocrit 43.3 % (37.0-47.0); Mean Cell Volume 78.6 fl (78-100); Mean Corpuscular Hemoglobin 27.2 pg (27-31); Mean Corpuscular Hgb Conc 34.6 g/dl (32-36); Mean Platelet Volume 9.8 fl (6.0-9.5); Neutrophil # 5.5 K/mm3 (1.3-6.0); Neutrophil % 62.5 % (42-75.0); Red Blood Count 5.51 M/mm3 (4.2-5.4); Red Cell Distribution Width 15.9 % (11.5-14.0); White Blood Count 8.9 K/mm3 (4.0-10.5)
[2017-08-21 13:19] LABS: BUN/Creatinine Ratio 16.1 (9.0-21.6); Calcium * 9.5 mg/dL (7.9-10.9); Estimated Creat Clear 39.1
[2017-08-21 13:39] LABS: Platelet Count 319 K/mm3 (150-450)
[2017-08-21 13:47] LABS: Urine Bilirubin Negative (NEGATIVE); Urine Blood 25 /ul (NEGATIVE); Urine Ketone Negative (NEGATIVE); Urine Protein 15 mg/dL (NEGATIVE); Urine Urobilinogen Normal (NORMAL)
[2017-08-21 13:58] LABS: Albumin * 3.7 gm/dl (3.4-5.0); Bilirubin Direct 0.1 mg/dL (0.0-0.3); Bilirubin, Total 0.6 mg/dL (0.0-1.1); Bilirubin,Indirect 0.5 mg/dL (0.1-0.7); Total Protein 7.3 gm/dL (6.2-8.2)
[2017-08-21 13:59] LABS: Urine Appearance Cloudy; Urine Color Yellow; Urine Nitrite Positive (NEGATIVE)
[2017-08-21 14:00] LABS: Urine Bacteria 2+; Urine Coarse Granular Cast 0-5 /LPF; Urine Yeast Few - 1+
--- NOTE | 2017-08-21 15:58 | HP ---
Chief Complaint - Chief Complaint Date of Service: 08/21/17 Time of Service: 11:30 Chief Complaint: Generalized weakness History of Present Illness: The patient presented to my office with complaints of increased generalized weakness with inability to ambulate or take care of herself without a great deal of assistance. Specifically, there is been a deterioration in the patient' s dysphasia, focus and dexterity. The patient does have a history of MS and is unclear whether or not she is having an acute flare versus chronic progression. The patient will be admitted for further evaluation and management. - Patient's Past Medical History Patient History - Medical: Depression, Fibromyalgia, GERD, Hypothyroidism, Osteoarthritis Patient History - Cardiac/Respiratory: No pertinent hx Patient History - Cancer: No Hx of Cancer Patient History - Surgical Procedures: Angioplasty, Cataracts, Cholecystectomy, Colon Resection, Colonoscopy, D & C, Other Patient History - Other: None - Family History Mother Family History - Medical: , Cataracts Family History - Cardiac/Respiratory: Arrhythmias, Hyperlipidemia Father Family History - Medical: , Cataracts Family History - Cardiac/Respiratory: No pertinent hx Family History - Cancer: No pertinent family hx - Social History Living Situations: home Abuse History: No History of abuse Psych History: Hx of Depression Smoking Status: Former smoker Have you smoked in the past 12 months: No Alcohol Use: none Drug Use: none - Immunizations Immunizations Up to Date: Yes Hx Pneumococcal Vaccination: No History of Influenza Vaccine: No Review Of Systems (GEN) - Review of Systems Generalized/Overall Review: Present: Weakness, Fatigue EENTM: Present: Blurred Vision Respiratory: Present: No Symptoms Reported Cardiac: Present: No Symptoms Reported Abdominal: Present: No Symptoms Reported Genitourinary: Present: No Symptoms Reported Musculoskeletal: Present: No Symptoms Reported Neurological: Present: Weakness Skin: Present: No Symptoms Reported Endocrine: Present: No Symptoms Reported Misc: All systems neg except as marked Immunizations: IMMUNIZATION HX Immunizations Up to Date Yes History of Influenza Vaccine No Hx Pneumococcal Vaccination No Allergies/Adverse Reactions: Allergies Allergy/AdvReac Type Severity Reaction Status Date / Time morphine Allergy Mild Hives Verified 08/21/17 11:27 sitagliptin phosphate Allergy Mild Hives Verified 08/21/17 11:27 [From Janumet] sulfasalazine Allergy Mild Nausea, Verified 08/21/17 11:27 [From Azulfidine] rash dimethyl fumarate Allergy Verified 08/21/17 11:27 [From [facility]] tramadol Allergy Verified 08/21/17 11:27 penicillin G AdvReac Mild RASH, FEVER Verified 08/21/17 11:27 Home Medications: HOME MEDICATIONS Calcium Carb & Citrate/Vit D3 [Calcium + Vitamin D3 Caplet] 1 each PO BID [Last Taken Unknown] DULoxetine HCL [Cymbalta] 60 mg PO DAILY 11/24/13 [Last Taken Unknown] Dexlansoprazole [Dexilant] 60 mg PO DAILY 11/24/13 [Last Taken Unknown] Levothyroxine Sodium [Synthroid] 50 mcg PO DAILY 11/24/13 [Last Taken Unknown] Gabapentin 800 mg PO TID 05/14/16 [Last Taken Unknown] Aspirin [Aspirin EC] 81 mg PO DAILY 02/16/17 [Last Taken Unknown] Ferrous Sulfate 325 mg PO BID 02/16/17 [Last Taken Unknown] Multivitamin [One Daily Multivitamin] 1 each PO DAILY 02/16/17 [Last Taken Unknown] oxyCODONE HCL/ACETAMINOPHEN [Percocet 5 MG/325 MG] 1 - 2 tab PO Q4H PRN [Last Taken Unknown] Furosemide [Lasix] 40 mg PO DAILY #30 tablet 03/03/17 [Last Taken Unknown] Cholecalciferol (Vitamin D3) [Vitamin D3] 5,000 unit PO DAILY 08/21/17 [Last Taken Unknown] Duloxetine HCl [Cymbalta] 30 mg PO DAILY 08/21/17 [Last Taken Unknown] Isoniazid 300 mg PO QAM 08/21/17 [Last Taken Unknown] Melatonin 10 mg PO HS 08/21/17 [Last Taken Unknown] Potassium Chloride [Klor-Con M20] 20 meq PO BID 08/21/17 [Last Taken Unknown] Pyridoxine HCl (Vitamin B6) [Vitamin B-6] 25 mg PO DAILY 08/21/17 [Last Taken Unknown] diphenhydrAMINE HCL [Benadryl] 50 mg PO HS 08/21/17 [Last Taken Unknown] Exam - Exam Vital Signs: Vital Signs - Last Taken Temp 36.4 C L 08/21/17 14:55 Pulse 97 08/21/17 14:55 Resp 18 08/21/17 14:55 BP 106/69 08/21/17 14:55 Pulse Ox 95 08/21/17 14:55 Constitutional: Present: Alert, Oriented x3, Cooperative, Well developed, No distress ENT Exam: Present: moist mucous membranes Eye Exam: bilateral eye: normal inspection Respiratory: Present: lungs clear, normal breath sounds, no respiratory distress , no accessory muscle use Cardiovascular/Chest: Present: regular rate, rhythm Abdomen: Present: soft, nontender, nondistended, other - Colostomy patent Skin Exam: Present: warm/dry Neurologic: Present: alert, normal mood/affect, oriented x 3 Appearance: Present: appropriate appearance, appropriate insight, neat Eye contact: Present: cooperative, good eye contact, normal speech Thoughts: Present: normal thought pattern, no apparent hallucination Diagnostic Studies: Abnormal Lab Results 08/21/17 08/21/17 08/21/17 Range/Units 10:49 13:00 13:38 RBC 5.51 H (4.2-5.4) M/mm3 RDW 15.9 H (11.5-14.0) % MPV 9.8 H (6.0-9.5) fl Immature Gran % (Auto) 0.80 H (0.001-0.429) % Immature Gran # (Auto) 0.07 H (0.000-0.0310) K/mm3 Sodium 121 L (132-142) mmol/L Plasma Sodium 122 L (130-142) mmol/L Carbon Dioxide 10.0 L (24-32.6) mmol/L Anion Gap 17.0 H (6.8-13.8) mmol/L Est GFR (Non-Af Amer) 46 L (60-130) mL/min Random Glucose 149 H (70-110) mg/dL AST 66 H (0-48) U/L Urine Protein 15 H (NEGATIVE) mg/dL Urine Blood 25 H (NEGATIVE) /ul Urine Nitrate Positive H (NEGATIVE) Ur Leukocyte Esterase 75 H (NEGATIVE) /ul Urine RBC 10-25 H (0-5) /hpf Urine WBC 10-25 H (0-5) /hpf Urine Bacteria 2+ H (NONE) Hyaline Casts 5-10 H (NONE) /LPF Coarse Granular Casts 0-5 H (NONE) /LPF Urine Yeast Few - 1+ H (NONE) Laboratory Results WBC 8.9 K/mm3 (4.0-10.5) 08/21/17 13:00 RBC 5.51 M/mm3 (4.2-5.4) H 08/21/17 13:00 Hgb 15.0 gm/dL (12.5-16.0) 08/21/17 13:00 Hct 43.3 % (37.0-47.0) 08/21/17 13:00 MCV 78.6 fl (78-100) 08/21/17 13:00 MCH 27.2 pg (27-31) 08/21/17 13:00 MCHC 34.6 g/dl (32-36) 08/21/17 13:00 RDW 15.9 % (11.5-14.0) H 08/21/17 13:00 Plt Count 319 K/mm3 (150-450) 08/21/17 13:00 MPV 9.8 fl (6.0-9.5) H 08/21/17 13:00 Immature Gran % (Auto) 0.80 % (0.001-0.429) H 08/21/17 13:00 Immature Gran # (Auto) 0.07 K/mm3 (0.000-0.0310) H 08/21/17 13:00 Neutrophils % 62.5 % (42-75.0) 08/21/17 13:00 Lymphocytes % 27.0 % (20-51) 08/21/17 13:00 Monocytes % 7.4 % (0.0-9) 08/21/17 13:00 Eosinophils % 1.4 % (0.0-3.0) 08/21/17 13:00 Basophils % 0.9 % (0.0-1.0) 08/21/17 13:00 Nucleated RBC % 0.0 k/mm3 (0-1) 08/21/17 13:00 Neutrophils # 5.5 K/mm3 (1.3-6.0) 08/21/17 13:00 Lymphocytes # 2.4 k/mm3 (1.5-3.5) 08/21/17 13:00 Monocytes # 0.7 k/mm3 (0.0-1.0) 08/21/17 13:00 Eosinophils # 0.1 k/mm3 (0.0-0.7) 08/21/17 13:00 Absolute Basophils 0.1 k/mm3 (0.0-0.1) 08/21/17 13:00 Sodium 121 mmol/L (132-142) L 08/21/17 10:49 Plasma Sodium 122 mmol/L (130-142) L 08/21/17 10:49 Potassium 4.0 mmol/L (3.4-4.6) 08/21/17 10:49 Chloride 98 mmol/L (97-106) 08/21/17 10:49 Carbon Dioxide 10.0 mmol/L (24-32.6) L 08/21/17 10:49 Anion Gap 17.0 mmol/L (6.8-13.8) H 08/21/17 10:49 BUN 20 mg/dL (3-23) 08/21/17 10:49 Creatinine 1.24 mg/dL (0.4-1.4) 08/21/17 10:49 Est GFR (Non-Af Amer) 46 mL/min (60-130) L 08/21/17 10:49 BUN/Creatinine Ratio 16.1 (9.0-21.6) 08/21/17 10:49 Random Glucose 149 mg/dL (70-110) H 08/21/17 10:49 Calcium 9.5 mg/dL (7.9-10.9) 08/21/17 10:49 Total Bilirubin 0.6 mg/dL (0.0-1.1) 08/21/17 10:49 Direct Bilirubin 0.1 mg/dL (0.0-0.3) 08/21/17 10:49 Indirect Bilirubin 0.5 mg/dL (0.1-0.7) 08/21/17 10:49 AST 66 U/L (0-48) H 08/21/17 10:49 ALT 42 U/L (19-67) 08/21/17 10:49 Alkaline Phosphatase 98 U/L (50-170) 08/21/17 10:49 Total Protein 7.3 gm/dL (6.2-8.2) 08/21/17 10:49 Albumin 3.7 gm/dl (3.4-5.0) 08/21/17 10:49 Urine Color Yellow 08/21/17 13:38 Urine Appearance Cloudy 08/21/17 13:38 Urine pH 6.0 pH (5.0-7.0) 08/21/17 13:38 Ur Specific Willis 1.010 SP.GR. (1.005-1.010) 08/21/17 13:38 Urine Protein 15 mg/dL (NEGATIVE) H 08/21/17 13:38 Urine Glucose (UA) Negative mg/dL (NEGATIVE) 08/21/17 13:38 Urine Ketones Negative mg/dL (NEGATIVE) 08/21/17 13:38 Urine Blood 25 /ul (NEGATIVE) H 08/21/17 13:38 Urine Nitrate Positive (NEGATIVE) H 08/21/17 13:38 Urine Bilirubin Negative mg/dl (NEGATIVE) 08/21/17 13:38 Prot Sulfosalicylic Acd 1+ mg/dL (0) 08/21/17 13:38 Urine Urobilinogen Normal EU/dl (NORMAL) 08/21/17 13:38 Ur Leukocyte Esterase 75 /ul (NEGATIVE) H 08/21/17 13:38 Urine RBC 10-25 /hpf (0-5) H 08/21/17 13:38 Urine WBC 10-25 /hpf (0-5) H 08/21/17 13:38 Ur Epithelial Cells 0-5 /hpf (0-5) 08/21/17 13:38 Urine Bacteria 2+ (NONE) H 08/21/17 13:38 Hyaline Casts 5-10 /LPF (NONE) H 08/21/17 13:38 Coarse Granular Casts 0-5 /LPF (NONE) H 08/21/17 13:38 Urine Yeast Few - 1+ (NONE) H 08/21/17 13:38 Urine Culture Comments Culture to follow 08/21/17 13:38 Assessment/Plan - Narrative Narrative: Admit patient to observation for further evaluation of her generalized weakness. Further recommendations pending labs and workup. PT/OT evaluation and treatment. [employer] evaluation and treatment. - Assessment/Plan (1) Generalized weakness Problem: Acute (2) Multiple sclerosis Problem: Chronic
[2017-08-21] MEDS ORDERED: LEVOFLOXACIN 500 MG TABLET PO SCH (16:00)
[2017-08-21] MEDS ORDERED: LEVOFLOXACIN 250 MG TABLET ONE (16:55)
[2017-08-21] MEDS ORDERED: GABAPENTIN 600 MG TABLET ONE (16:56)
[2017-08-21] MEDS ORDERED: GABAPENTIN 100 MG CAPSULE ONE (16:56)
[2017-08-21] MEDS: NORMAL SALINE 1,000 ML IV PRN (16:59)
[2017-08-21] MEDS: GABAPENTIN 400 MG CAPSULE PO SCH (16:59)
[2017-08-21] MEDS: FERROUS SULFATE 325 MG TABLET PO SCH (20:44)
[2017-08-21] MEDS: diphenhydrAMINE HCL 50 MG CAPSULE PO SCH (20:44)
[2017-08-21] MEDS: MELATONIN 3,000 MCG TABLET PO SCH (20:44)
[2017-08-21] MEDS: POTASSIUM CHLORIDE 20 MEQ TABLET.SA PO SCH (20:44)
[2017-08-21] MEDS: CALCIUM CARBONATE/VITAMIN D3 1 TAB TABLET PO SCH (20:44)
[2017-08-21 21:31] LABS: BUN/Creatinine Ratio 16.1 (9.0-21.6); Calcium * 8.7 mg/dL (7.9-10.9); Carbon Dioxide 12.6 mmol/L (24-32.6); Estimated Creat Clear 39.1; Potassium 3.6 mmol/L (3.4-4.6)
[2017-08-22] MEDS: NORMAL SALINE 1,000 ML IV PRN ×2 (00:52→10:43)
[2017-08-22] MEDS: oxyCODONE HCL/ACETAMINOPHEN 1 TAB TABLET PO PRN ×3 (02:19→20:57)
[2017-08-22 05:45] LABS: Anion Gap 16.3 mmol/L (6.8-13.8); Calcium * 8.3 mg/dL (7.9-10.9); Carbon Dioxide 15.1 mmol/L (24-32.6); Potassium 3.4 mmol/L (3.4-4.6)
[2017-08-22 05:56] LABS: BUN/Creatinine Ratio 15.3 (9.0-21.6)
[2017-08-22] MEDS: PANTOPRAZOLE SODIUM 40 MG TABLET.EC PO SCH (07:58)
[2017-08-22] MEDS: LEVOTHYROXINE SODIUM 50 MCG TABLET PO SCH (07:58)
[2017-08-22] MEDS: POTASSIUM CHLORIDE 20 MEQ TABLET.SA PO SCH ×2 (08:00→20:58)
[2017-08-22] MEDS: ISONIAZID 100 MG TABLET PO SCH (08:00)
[2017-08-22] MEDS: PYRIDOXINE HCL (VITAMIN B6) 25 MG TABLET PO SCH (08:00)
[2017-08-22] MEDS: ASPIRIN 81 MG TABLET.DR PO SCH (08:01)
[2017-08-22] MEDS: FERROUS SULFATE 325 MG TABLET PO SCH ×2 (08:01→20:58)
[2017-08-22] MEDS: GABAPENTIN 400 MG CAPSULE PO SCH ×3 (08:01→17:07)
[2017-08-22] MEDS: MULTIVITAMINS 1 CAP CAPSULE PO SCH (08:01)
[2017-08-22] MEDS: DULoxetine HCL 30 MG CAPSULE.SA PO SCH ×2 (08:01→09:22)
[2017-08-22] MEDS: CALCIUM CARBONATE/VITAMIN D3 1 TAB TABLET PO SCH ×2 (08:01→20:58)
[2017-08-22] MEDS: CHOLECALCIFEROL 5,000 UNIT TABLET PO SCH (08:01)
[2017-08-22] MEDS: ENOXAPARIN SODIUM 40 MG/0.4 ML SYRG SC SCH (10:45)
--- NOTE | 2017-08-22 12:50 | PN ---
Subjective - Date and Time Seen Date: 08/22/17 Time: 10:00 Subjective Narrative: Patient seen and examined at bedside. No acute issues overnight. Patient states that she feels a little bit better this a.m. but still is quite weak. She denies any new issues or concerns. Objective - Review of Systems Generalized/Overall Review: Reports: Weakness, Fatigue EENTM: Reports: Blurred Vision Respiratory: Reports: No Symptoms Reported Cardiac: Reports: No Symptoms Reported Abdominal: Reports: No Symptoms Reported Genitourinary Symptoms: Reports: No Symptoms Reported Musculoskeletal Complaints: Reports: No Symptoms Reported Neurological: Reports: Weakness Skin: Reports: No Symptoms Reported Endocrine: Reports: No Symptoms Reported Misc: All systems neg except as marked - Vitals Vitals: Last Vital Signs Temp 36.3 C L 08/22/17 12:39 Pulse 82 08/22/17 12:39 Resp 14 08/22/17 12:39 BP 96/58 08/22/17 12:39 Pulse Ox 100 08/22/17 12:39 - Abnormal Lab Findings Abnormal Lab Findings: Abnormal Lab Results 08/21/17 08/21/17 08/21/17 Range/Units 10:49 13:00 13:38 RBC 5.51 H (4.2-5.4) M/mm3 RDW 15.9 H (11.5-14.0) % MPV 9.8 H (6.0-9.5) fl Immature Gran % (Auto) 0.80 H (0.001-0.429) % Immature Gran # (Auto) 0.07 H (0.000-0.0310) K/mm3 Sodium 121 L (132-142) mmol/L Plasma Sodium 122 L (130-142) mmol/L Carbon Dioxide 10.0 L (24-32.6) mmol/L Anion Gap 17.0 H (6.8-13.8) mmol/L Est GFR (Non-Af Amer) 46 L (60-130) mL/min Random Glucose 149 H (70-110) mg/dL AST 66 H (0-48) U/L Urine Protein 15 H (NEGATIVE) mg/dL Urine Blood 25 H (NEGATIVE) /ul Urine Nitrate Positive H (NEGATIVE) Ur Leukocyte Esterase 75 H (NEGATIVE) /ul Urine RBC 10-25 H (0-5) /hpf Urine WBC 10-25 H (0-5) /hpf Urine Bacteria 2+ H (NONE) Hyaline Casts 5-10 H (NONE) /LPF Coarse Granular Casts 0-5 H (NONE) /LPF Urine Yeast Few - 1+ H (NONE) 08/21/17 08/22/17 Range/Units 21:15 05:34 RBC (4.2-5.4) M/mm3 RDW (11.5-14.0) % MPV (6.0-9.5) fl Immature Gran % (Auto) (0.001-0.429) % Immature Gran # (Auto) (0.000-0.0310) K/mm3 Sodium 123 L 129 L (132-142) mmol/L Plasma Sodium 124 L 129 L (130-142) mmol/L Carbon Dioxide 12.6 L 15.1 L (24-32.6) mmol/L Anion Gap 16.0 H 16.3 H (6.8-13.8) mmol/L Est GFR (Non-Af Amer) 46 L 49 L (60-130) mL/min Random Glucose 164 H 123 H (70-110) mg/dL AST (0-48) U/L Urine Protein (NEGATIVE) mg/dL Urine Blood (NEGATIVE) /ul Urine Nitrate (NEGATIVE) Ur Leukocyte Esterase (NEGATIVE) /ul Urine RBC (0-5) /hpf Urine WBC (0-5) /hpf Urine Bacteria (NONE) Hyaline Casts (NONE) /LPF Coarse Granular Casts (NONE) /LPF Urine Yeast (NONE) - Exam Constitutional: Present: Alert, Oriented x3, Cooperative, No distress ENT Exam: Present: moist mucous membranes Respiratory: Present: lungs clear, normal breath sounds, no respiratory distress , no accessory muscle use Cardiovascular/Chest: Present: regular rate, rhythm Abdomen: Present: soft, nontender, nondistended, other - Colostomy present Skin Exam: Present: warm/dry Neurologic: Present: alert, normal mood/affect, oriented x 3 Appearance: Present: appropriate appearance, appropriate insight, neat Eye contact: Present: cooperative, good eye contact, normal speech Thoughts: Present: normal thought pattern, no apparent hallucination Assessment/Plan Plan Narrative: Patient's workup revealed significant hyponatremia as well as a urinary tract infection. I am not convinced that the patient is having an acute MS flare and rather, I believe her presentation was most likely secondary to her hyponatremia and UTI. The patient's hyponatremia is secondary to poor by mouth intake due to her worsening dysphagia. Continue IV fluid hydration. Monitor sodium level closely to ensure it is not rising too quickly. Daily standing weights. Continue antibiotics for UTI. Await final culture and sensitivity results and adjust antibiotics as necessary. 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 - Problems/Diagnosis (1) Generalized weakness Problem: Acute (2) Hyponatremia Problem: Acute (3) UTI (urinary tract infection) Problem: Acute (4) Multiple sclerosis Problem: Chronic (5) Dysphagia Problem: Acute
[2017-08-22 14:16] LABS: Anion Gap 17.3 mmol/L (6.8-13.8); BUN/Creatinine Ratio 13.4 (9.0-21.6); Calcium * 8.4 mg/dL (7.9-10.9); Carbon Dioxide 14.5 mmol/L (24-32.6); Estimated Creat Clear 43.2; Potassium 3.8 mmol/L (3.4-4.6)
[2017-08-22] MEDS ORDERED: LEVOFLOXACIN 250 MG TABLET PO SCH (16:00)
[2017-08-22] MEDS: diphenhydrAMINE HCL 50 MG CAPSULE PO SCH (20:58)
[2017-08-22] MEDS: MELATONIN 3,000 MCG TABLET PO SCH (20:58)
[2017-08-22 21:18] LABS: Anion Gap 15.6 mmol/L (6.8-13.8); Carbon Dioxide 15.9 mmol/L (24-32.6); Estimated Creat Clear 44.4; Potassium 3.5 mmol/L (3.4-4.6)
[2017-08-23] MEDS: NORMAL SALINE 1,000 ML IV PRN (03:48)
[2017-08-23 05:51] LABS: Hematocrit 34.4 % (37.0-47.0); Hemoglobin 11.5 gm/dL (12.5-16.0); Mean Cell Volume 81.5 fl (78-100); Mean Corpuscular Hemoglobin 27.3 pg (27-31); Mean Corpuscular Hgb Conc 33.4 g/dl (32-36); Mean Platelet Volume 9.3 fl (6.0-9.5); Neutrophil % 45.8 % (42-75.0); Platelet Count 252 K/mm3 (150-450); Red Blood Count 4.22 M/mm3 (4.2-5.4); Red Cell Distribution Width 16.4 % (11.5-14.0); White Blood Count 4.3 K/mm3 (4.0-10.5)
[2017-08-23 06:06] LABS: Anion Gap 15.2 mmol/L (6.8-13.8); BUN/Creatinine Ratio 8.4 (9.0-21.6); Bilirubin, Total 0.4 mg/dL (0.0-1.1); Ca. Corrected For Albumin 8.3 mg/dL (8.4-10.2); Calcium * 7.8 mg/dL (7.9-10.9); Carbon Dioxide 17.5 mmol/L (24-32.6); Potassium 3.7 mmol/L (3.4-4.6); Total Protein 5.7 gm/dL (6.2-8.2)
[2017-08-23] MEDS: PANTOPRAZOLE SODIUM 40 MG TABLET.EC PO SCH (07:01)
[2017-08-23] MEDS: LEVOTHYROXINE SODIUM 50 MCG TABLET PO SCH (07:01)
[2017-08-23] MEDS: oxyCODONE HCL/ACETAMINOPHEN 1 TAB TABLET PO PRN ×2 (07:01→17:08)
[2017-08-23] MEDS ORDERED: CEFDINIR 300 MG CAPSULE PO ONE (07:30)
[2017-08-23] MEDS: GABAPENTIN 400 MG CAPSULE PO SCH ×3 (08:04→17:08)
[2017-08-23] MEDS: POTASSIUM CHLORIDE 20 MEQ TABLET.SA PO SCH ×2 (08:05→20:56)
[2017-08-23] MEDS: PYRIDOXINE HCL (VITAMIN B6) 25 MG TABLET PO SCH (08:05)
[2017-08-23] MEDS: ISONIAZID 100 MG TABLET PO SCH (08:05)
[2017-08-23] MEDS: FERROUS SULFATE 325 MG TABLET PO SCH ×2 (08:05→20:56)
[2017-08-23] MEDS: CHOLECALCIFEROL 5,000 UNIT TABLET PO SCH (08:05)
[2017-08-23] MEDS: ASPIRIN 81 MG TABLET.DR PO SCH (08:05)
[2017-08-23] MEDS: DULoxetine HCL 30 MG CAPSULE.SA PO SCH ×2 (08:05)
[2017-08-23] MEDS: CALCIUM CARBONATE/VITAMIN D3 1 TAB TABLET PO SCH ×2 (08:05→20:56)
[2017-08-23] MEDS: MULTIVITAMINS 1 CAP CAPSULE PO SCH (08:06)
[2017-08-23] MEDS: ENOXAPARIN SODIUM 40 MG/0.4 ML SYRG SC SCH (11:14)
--- NOTE | 2017-08-23 19:06 | PN ---
Subjective - Date and Time Seen Date: 08/23/17 Time: 14:15 Subjective Narrative: Patient seen and examined at bedside. No acute issues overnight. Patient denies any new issues or concerns this AM. She feels like each day she is getting a bit stronger. Objective - Review of Systems Generalized/Overall Review: Reports: Weakness, Fatigue EENTM: Reports: No Symptoms Reported Respiratory: Reports: No Symptoms Reported Cardiac: Reports: No Symptoms Reported Abdominal: Reports: No Symptoms Reported Genitourinary Symptoms: Reports: No Symptoms Reported Musculoskeletal Complaints: Reports: No Symptoms Reported Neurological: Reports: Weakness Skin: Reports: No Symptoms Reported Endocrine: Reports: No Symptoms Reported Misc: All systems neg except as marked - Vitals Vitals: Last Vital Signs Temp 36.3 C L 08/23/17 14:52 Pulse 80 08/23/17 14:52 Resp 20 08/23/17 14:52 BP 96/58 08/23/17 14:52 Pulse Ox 100 08/23/17 14:52 - Abnormal Lab Findings Abnormal Lab Findings: Abnormal Lab Results 08/22/17 08/23/17 08/23/17 Range/Units 21:05 05:35 05:35 Hgb 11.5 L (12.5-16.0) gm/dL Hct 34.4 L (37.0-47.0) % RDW 16.4 H (11.5-14.0) % Immature Gran % (Auto) 1.20 H (0.001-0.429) % Immature Gran # (Auto) 0.05 H (0.000-0.0310) K/mm3 Monocytes % 10.8 H (0.0-9) % Sodium 130 L (132-142) mmol/L Carbon Dioxide 15.9 L 17.5 L (24-32.6) mmol/L Anion Gap 15.6 H 15.2 H (6.8-13.8) mmol/L Est GFR (Non-Af Amer) 54 L 48 L (60-130) mL/min BUN/Creatinine Ratio 8.4 L (9.0-21.6) Random Glucose 142 H 124 H (70-110) mg/dL Calcium 7.8 L (7.9-10.9) mg/dL Calcium Adj for Albumin 8.3 L (8.4-10.2) mg/dL Total Protein 5.7 L (6.2-8.2) gm/dL Albumin 3.0 L (3.4-5.0) gm/dl - Exam Constitutional: Present: Alert, Oriented x3, Cooperative, No distress ENT Exam: Present: moist mucous membranes Respiratory: Present: lungs clear, normal breath sounds, no respiratory distress , no accessory muscle use Cardiovascular/Chest: Present: regular rate, rhythm Abdomen: Present: soft, nontender, nondistended, other - colostomy present Extremity: Present: normal inspection Skin Exam: Present: warm/dry Neurologic: Present: alert, normal mood/affect, oriented x 3 Appearance: Present: appropriate appearance, appropriate insight, neat Eye contact: Present: cooperative, good eye contact, normal speech Thoughts: Present: normal thought pattern, no apparent hallucination Assessment/Plan Plan Narrative: Patient clinically improving but will likely need SNF at discharge. Appreciate our case manager specialist assistance with this. Patient's workup revealed significant hyponatremia as well as a urinary tract infection. I am not convinced that the patient is having an acute MS flare and rather, I believe her presentation was most likely secondary to her hyponatremia and UTI. The patient's hyponatremia is secondary to poor by mouth intake due to her worsening dysphagia. Continue IV fluid hydration. Monitor sodium level closely to ensure it is not rising too quickly. Daily standing weights. Continue antibiotics for UTI. Await final culture and sensitivity results and adjust antibiotics as necessary. 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 - Problems/Diagnosis (1) Dysphagia Problem: Acute (2) Generalized weakness Problem: Acute (3) Hyponatremia Problem: Acute (4) UTI (urinary tract infection) Problem: Acute (5) Multiple sclerosis Problem: Chronic
[2017-08-23] MEDS ORDERED: NORMAL SALINE 500 ML IV ONE (20:36)
[2017-08-23] MEDS: CEFDINIR 300 MG CAPSULE PO SCH (20:55)
[2017-08-23] MEDS: MELATONIN 3,000 MCG TABLET PO SCH (20:56)
[2017-08-23] MEDS: diphenhydrAMINE HCL 50 MG CAPSULE PO SCH (20:56)
--- NOTE | 2017-08-23 23:03 | PN ---
Progess Note - Interim Narrative: 08/23/17 23:00 patient was seen for hypotensive BP 89/46 and S/P Bolus NS 500ml x1, Re-eval BP 90/52. pt Blood pressure out-pt is always low when she sees her PCP. case discussed with Dr benavidez will continue to monitor over night.
[2017-08-24 05:44] LABS: Anion Gap 13.8 mmol/L (6.8-13.8); BUN/Creatinine Ratio 6.8 (9.0-21.6); Calcium * 7.8 mg/dL (7.9-10.9); Carbon Dioxide 18.9 mmol/L (24-32.6); Potassium 3.7 mmol/L (3.4-4.6)
[2017-08-24] MEDS: LEVOTHYROXINE SODIUM 50 MCG TABLET PO SCH (06:51)
[2017-08-24] MEDS: PANTOPRAZOLE SODIUM 40 MG TABLET.EC PO SCH (06:51)
[2017-08-24] MEDS: DULoxetine HCL 30 MG CAPSULE.SA PO SCH ×2 (09:44→09:45)
[2017-08-24] MEDS: ASPIRIN 81 MG TABLET.DR PO SCH (09:44)
[2017-08-24] MEDS: CALCIUM CARBONATE/VITAMIN D3 1 TAB TABLET PO SCH ×2 (09:44→21:21)
[2017-08-24] MEDS: ISONIAZID 100 MG TABLET PO SCH (09:45)
[2017-08-24] MEDS: FERROUS SULFATE 325 MG TABLET PO SCH ×2 (09:45→21:21)
[2017-08-24] MEDS: MULTIVITAMINS 1 CAP CAPSULE PO SCH (09:45)
[2017-08-24] MEDS: POTASSIUM CHLORIDE 20 MEQ TABLET.SA PO SCH ×2 (09:45→21:19)
[2017-08-24] MEDS: PYRIDOXINE HCL (VITAMIN B6) 25 MG TABLET PO SCH (09:46)
[2017-08-24] MEDS: GABAPENTIN 400 MG CAPSULE PO SCH ×3 (09:46→16:13)
[2017-08-24] MEDS: CEFDINIR 300 MG CAPSULE PO SCH ×2 (09:46→21:19)
[2017-08-24] MEDS: CHOLECALCIFEROL 5,000 UNIT TABLET PO SCH (09:46)
[2017-08-24] MEDS: ENOXAPARIN SODIUM 40 MG/0.4 ML SYRG SC SCH (11:06)
[2017-08-24] MEDS: oxyCODONE HCL/ACETAMINOPHEN 1 TAB TABLET PO PRN (19:57)
[2017-08-24] MEDS: MELATONIN 3,000 MCG TABLET PO SCH (21:19)
[2017-08-24] MEDS: diphenhydrAMINE HCL 50 MG CAPSULE PO SCH (21:22)
[2017-08-25] MEDS: LEVOTHYROXINE SODIUM 50 MCG TABLET PO SCH (06:43)
[2017-08-25] MEDS: PANTOPRAZOLE SODIUM 40 MG TABLET.EC PO SCH (06:43)
[2017-08-25] MEDS: ASPIRIN 81 MG TABLET.DR PO SCH (09:27)
[2017-08-25] MEDS: CALCIUM CARBONATE/VITAMIN D3 1 TAB TABLET PO SCH (09:27)
[2017-08-25] MEDS: ISONIAZID 100 MG TABLET PO SCH (09:28)
[2017-08-25] MEDS: DULoxetine HCL 30 MG CAPSULE.SA PO SCH ×2 (09:28)
[2017-08-25] MEDS: FERROUS SULFATE 325 MG TABLET PO SCH (09:28)
[2017-08-25] MEDS: CEFDINIR 300 MG CAPSULE PO SCH (09:29)
[2017-08-25] MEDS: POTASSIUM CHLORIDE 20 MEQ TABLET.SA PO SCH (09:29)
[2017-08-25] MEDS: MULTIVITAMINS 1 CAP CAPSULE PO SCH (09:29)
[2017-08-25] MEDS: PYRIDOXINE HCL (VITAMIN B6) 25 MG TABLET PO SCH (09:29)
[2017-08-25] MEDS: CHOLECALCIFEROL 5,000 UNIT TABLET PO SCH (09:29)
[2017-08-25] MEDS: GABAPENTIN 400 MG CAPSULE PO SCH ×2 (09:29→12:51)
[2017-08-25] MEDS: ENOXAPARIN SODIUM 40 MG/0.4 ML SYRG SC SCH (10:22)
[2017-08-25 10:52] VITALS: BP 95/50
--- NOTE | 2017-08-25 12:17 | DS ---
(1) Hyponatremia Problem: Acute (2) Multiple sclerosis Problem: Chronic (3) UTI (urinary tract infection) Problem: Acute (4) Dysphagia Problem: Acute (5) Generalized weakness Problem: Acute Description of Stay: ADMISSION DATE: 08/21/2017 DISCHARGE DATE: 08/25/2017 ADMISSION HPI: The patient presented to my office with complaints of increased generalized weakness with inability to ambulate or take care of herself without a great deal of assistance. Specifically, there is been a deterioration in the patient' s dysphasia, focus and dexterity. The patient does have a history of MS and is unclear whether or not she is having an acute flare versus chronic progression. The patient will be admitted for further evaluation and management. HOSPITAL COURSE: The patient was admitted to the hospital for generalized weakness and her workup revealed significant hyponatremia as well as a urinary tract infection. I was not convinced that the patient was having an acute MS flare and rather, I believe her presentation was most likely secondary to her hyponatremia and UTI. The patient's hyponatremia is secondary to poor by mouth intake due to her worsening dysphagia. Patient was treated with IVF hydration with appropriate improvement/correction in her sodium level. She was also treated for a UTI during her stay. The patient will need ongoing cares and therapies and will be discharge to [facility]. FOLLOW-UP APPOINTMENTS: -Dr. Sibley will see the patient at [facility] on 08/26/2017 NEW OR CHANGED MEDICATIONS: None DISCONTINUED MEDICATIONS: None RADIOLOGY REPORTS: None Procedures Performed: none Results and Findings: Laboratory Tests 08/21/17 08/21/17 08/21/17 10:49 13:00 13:38 WBC 8.9 Hgb 15.0 Sodium 121 L Urine Color Yellow Urine Appearance Cloudy Urine pH 6.0 Ur Specific [place] 1.010 Urine Protein 15 H Urine Glucose (UA) Negative Urine Ketones Negative Urine Blood 25 H Urine Nitrate Positive H Urine Bilirubin Negative Prot Sulfosalicylic Acd 1+ Urine Urobilinogen Normal Ur Leukocyte Esterase 75 H Urine RBC 10-25 H Urine WBC 10-25 H Ur Epithelial Cells 0-5 Urine Bacteria 2+ H Hyaline Casts 5-10 H Coarse Granular Casts 0-5 H Urine Yeast Few - 1+ H Urine Culture Comments Culture to follow 08/21/17 08/22/17 08/22/17 21:15 05:34 13:45 WBC Hgb Sodium 123 L 129 L 131 L Urine Color Urine Appearance Urine pH Ur Specific [place] Urine Protein Urine Glucose (UA) Urine Ketones Urine Blood Urine Nitrate Urine Bilirubin Prot Sulfosalicylic Acd Urine Urobilinogen Ur Leukocyte Esterase Urine RBC Urine WBC Ur Epithelial Cells Urine Bacteria Hyaline Casts Coarse Granular Casts Urine Yeast Urine Culture Comments 08/22/17 08/23/17 08/23/17 21:05 05:35 05:35 WBC 4.3 D Hgb 11.5 L Sodium 130 L 135 Urine Color Urine Appearance Urine pH Ur Specific [place] Urine Protein Urine Glucose (UA) Urine Ketones Urine Blood Urine Nitrate Urine Bilirubin Prot Sulfosalicylic Acd Urine Urobilinogen Ur Leukocyte Esterase Urine RBC Urine WBC Ur Epithelial Cells Urine Bacteria Hyaline Casts Coarse Granular Casts Urine Yeast Urine Culture Comments 08/24/17 05:20 WBC Hgb Sodium 138 Urine Color Urine Appearance Urine pH Ur Specific [place] Urine Protein Urine Glucose (UA) Urine Ketones Urine Blood Urine Nitrate Urine Bilirubin Prot Sulfosalicylic Acd Urine Urobilinogen Ur Leukocyte Esterase Urine RBC Urine WBC Ur Epithelial Cells Urine Bacteria Hyaline Casts Coarse Granular Casts Urine Yeast Urine Culture Comments Discharge Disposition: [facility] Disposition: [facility] Condition: Stable Discharge Activity: Activity as tolerated Discharge Diet: General/regular food Referrals: Rebekah Sibley DO [Primary Care Provider] - Additional Patient Instructions (free text): Dr. Sibley will see the patient at [facility] on 08/26/2017 Complete Home Medications List: Complete Home Medication List: Calcium Carb & Citrate/Vit D3 [Calcium + Vitamin D3 [place]] 1 each PO BID DULoxetine HCL [Cymbalta] 60 mg PO DAILY 11/24/13 Dexlansoprazole [Dexilant] 60 mg PO DAILY 11/24/13 Levothyroxine Sodium [Synthroid] 50 mcg PO DAILY 11/24/13 Gabapentin 800 mg PO TID 05/14/16 Aspirin [Aspirin EC] 81 mg PO DAILY 02/16/17 Ferrous Sulfate 325 mg PO BID 02/16/17 Multivitamin [One Daily Multivitamin] 1 each PO DAILY 02/16/17 oxyCODONE HCL/ACETAMINOPHEN [Percocet 5 MG/325 MG] 1 - 2 tab PO Q4H PRN Furosemide [Lasix] 40 mg PO DAILY #30 tablet 03/03/17 Cholecalciferol (Vitamin D3) [Vitamin D3] 5,000 unit PO DAILY 08/21/17 Duloxetine HCl [Cymbalta] 30 mg PO DAILY 08/21/17 Isoniazid 300 mg PO QAM 08/21/17 Melatonin 10 mg PO HS 08/21/17 Potassium Chloride [Klor-Con M20] 20 meq PO BID 08/21/17 Pyridoxine HCl (Vitamin B6) [Vitamin B-6] 25 mg PO DAILY 08/21/17 diphenhydrAMINE HCL [Benadryl] 50 mg PO HS 08/21/17
--- NOTE | 2017-08-25 12:18 | PN ---
Subjective - Date and Time Seen Date: 08/24/17 Time: 11:00 Subjective Narrative: Patient seen and examined at bedside. No acute issues overnight. Patient denies any new issues or concerns this AM. She feels like each day she is getting a bit stronger. Objective - Review of Systems Generalized/Overall Review: Reports: Weakness, Fatigue EENTM: Reports: No Symptoms Reported Respiratory: Reports: No Symptoms Reported Cardiac: Reports: No Symptoms Reported Abdominal: Reports: No Symptoms Reported Genitourinary Symptoms: Reports: No Symptoms Reported Musculoskeletal Complaints: Reports: No Symptoms Reported Neurological: Reports: Weakness - generalized Skin: Reports: No Symptoms Reported Endocrine: Reports: No Symptoms Reported Misc: All systems neg except as marked - Vitals Vitals: Last Vital Signs Temp 36.8 C 08/25/17 10:51 Pulse 75 08/25/17 10:51 Resp 18 08/25/17 10:51 BP 95/50 08/25/17 10:51 Pulse Ox 100 08/25/17 10:51 - Exam Constitutional: Present: Alert, Oriented x3, Cooperative, No distress ENT Exam: Present: moist mucous membranes Cardiovascular/Chest: Present: regular rate, rhythm Abdomen: Present: soft, nontender, nondistended, other - colostomy present Extremity: Present: normal inspection Skin Exam: Present: warm/dry Neurologic: Present: alert, normal mood/affect, oriented x 3 Appearance: Present: appropriate appearance, appropriate insight, neat Eye contact: Present: cooperative, good eye contact, normal speech Thoughts: Present: normal thought pattern, no apparent hallucination Assessment/Plan Plan Narrative: Sodium level improving nicely. Patient clinically improving but would benefit from placement at discharge. Patient will likely be medically stable for discharge tomorrow. - Problems/Diagnosis (1) Hyponatremia Problem: Acute (2) Multiple sclerosis Problem: Chronic (3) UTI (urinary tract infection) Problem: Acute (4) Dysphagia Problem: Acute (5) Generalized weakness Problem: Acute
[2017-08-25] MEDS: oxyCODONE HCL/ACETAMINOPHEN 1 TAB TABLET PO PRN (12:51)
== END 2017-08-25 13:18 | DRG 690 ==
LOC: MS 10:18
PROVIDERS: ADMIT Internal Medicine; ATTEND Internal Medicine
DX: N39.0 Urinary tract infection, site not specified (principal); E87.1 Hypo-osmolality and hyponatremia; B96.20 Unspecified Escherichia coli [E. coli] as the cause of diseases classified elsewhere; G35 Multiple sclerosis; R13.10 Dysphagia, unspecified; R53.1 Weakness; E03.9 Hypothyroidism, unspecified; M79.7 Fibromyalgia